=== PATIENT | female | born 1955 | race Caucasian/White ===

== ENCOUNTER → 2021-12-12 09:01 | Outpatient (BNVA) | payer MEDICARE, MEDICAID, SELFPAY | PROVIDERS: PCP Family Medicine; Visit Provider Nurse Practitioner Family | DX: F03.90 Unspecified dementia, unspecified severity, without behavioral disturbance, psychotic disturbance, mood disturbance, and anxiety (principal); R56.9 Unspecified convulsions; R25.1 Tremor, unspecified | CPT/HCPCS: 99212 ==

== ENCOUNTER → 2022-05-23 13:56 | Outpatient (BNVA) | payer MEDICARE, MEDICAID, SELFPAY | PROVIDERS: PCP Family Medicine; Visit Provider Nurse Practitioner Family | DX: R56.9 Unspecified convulsions (principal); F03.90 Unspecified dementia, unspecified severity, without behavioral disturbance, psychotic disturbance, mood disturbance, and anxiety; R25.1 Tremor, unspecified | CPT/HCPCS: 99212 ==

== ENCOUNTER → 2022-11-27 13:22 | Outpatient (BNVA) | payer MEDICARE, MEDICAID, SELFPAY | PROVIDERS: PCP Family Medicine; Visit Provider Nurse Practitioner Family | DX: R26.9 Unspecified abnormalities of gait and mobility (principal); R25.1 Tremor, unspecified; R56.9 Unspecified convulsions; F03.90 Unspecified dementia, unspecified severity, without behavioral disturbance, psychotic disturbance, mood disturbance, and anxiety | CPT/HCPCS: 99212 ==

== ENCOUNTER 2023-05-30 11:01 | Outpatient (AMB) | payer MEDICARE, MEDICAID, SELFPAY ==
--- NOTE | 2023-05-30 11:11 | MHC.OFFVIS ---
Intake Vital Signs 05/30/23 11:13 Height 5 ft Weight 153 lb 6 oz BMI 30.0 BP 144/92 H Blood Pressure Location Rt brachial Position Sitting Pulse 84 Pulse Source Pulse Oximeter Pulse Oximetry (%) 96 Oxygen Delivery Method Room Air Intake Visit Reasons: 6m follow up Intake Note: Patient presents for 6 month follow up. Patient states no concerns today, Im doing very well Allergies cofex Allergy (Mild, Uncoded 05/30/23 11:15) Hives Medication List - Last Reconciled 05/30/23 by DANISHA Bell albuterol sulfate 90 mcg/actuation 1 inh inhalation QID amitriptyline mg PO divalproex ER (Depakote ER) 750 mg (3 x 250 mg) PO DAILY 90 days fluticasone furoate-vilanterol 100-25 mcg/dose (Breo Ellipta) inhalation levetiracetam 1,000 mg PO BID 30 days levetiracetam 750 mg PO BID 30 days levothyroxine 75 mcg PO DAILY memantine 28 mg PO DAILY 30 days HPI HPI Comments History of Present Illness Details 68-yr-old male presents for f/u visit. Pt denies any significant interval medical changes. Pt reports that she has had 4 seizures since the last visit, she has been having a bit more aura again- seeing blue dots. She is not having any urinary incontinence. She is coming out of the seizure sooner. Pt reports she is complaint w/ her Depakote ER 750mg hqs and Keppra 1750mg bid. Last CBC, CMP, depakote level- WNL She has not been having any diplopia. She has completed PT at [facility]- which was very helpful for her balance and walking. Pt states since doing PT and taking the Namenda, her cognition is better. She is due for f/u neuro-psych testing in Jul/Aug. [facility] Surgical History H/O hernia repair Hx of breast reduction, elective Hx of appendectomy Family History Mother Leukemia Father Dementia Epilepsy Social History Alcohol intake: never Patient Tobacco Use Status: Never used Tobacco Review of Systems Const All systems reviewed & are unremarkable except as noted in HPI and below Physical Exam Vital Signs: Last Vital Signs Pulse 84 05/30/23 11:13 BP 144/92 H 05/30/23 11:13 Pulse Ox 96 05/30/23 11:13 Oxygen Delivery Method Room Air 05/30/23 11:13 BMI result Body Mass Index 30.0 Const General: cooperative and no acute distress Orientation/consciousness: patient oriented x3 HEENT Head: Yes normocephalic Resp Effort & Inspection: normal respiratory effort and able to speak in complete sentences Neuro Other: Left dysconjugate gaze General: patient oriented x3 and gait normal Cognition (Neuro): normal cognition Motor exam (neuro): 5/5 motor strength present throughout Psych Appearance: grossly normal Mental Status: mental status grossly normal Speech and movement: Clear speech present Affect: normal affect Attitude: cooperative Thought process: Normal thought process present Assessment & Plan Assessment & Plan (1) Seizure: Code(s): R56.9 - Unspecified convulsions (2) Tremor: Code(s): R25.1 - Tremor, unspecified (3) Dementia: Comment: mild-mod per neuropsych consult Code(s): F03.90 - Unspecified dementia, unspecified severity, without behavioral disturbance, psychotic disturbance, mood disturbance, and anxiety Plan Continue Namenda 28mg qd. Continue Depakote and levetiracetam for seizure management. Check CBC, CMP, Depakote level- lab slip given to pt. Neuro-psych f/u as scheduled Continue to monitor tremor. Orders: Orders Comprehensive Met. Panel Today R56.9 - Unspecified convulsions Valproate Today R56.9 - Unspecified convulsions Complete Blood Count Auto Diff Today R56.9 - Unspecified convulsions Medications: Changed From memantine 28 mg PO DAILY 30 days 30 ea 6RF To memantine 28 mg PO DAILY 90 ea 1RF 90 days Refilled divalproex ER (Depakote ER) 750 mg (3 x 250 mg) PO DAILY 270 tabs 1RF 90 days Coding Level of Care Code Est Pt Level 4 (97550) Diagnoses Seizure R56.9 Tremor R25.1 Dementia F03.90
[2023-05-30 11:13] VITALS: BP 144/92; PULSE 84; O2SAT 96
== END 2023-05-30 12:01 | disposition home or self-care (01) ==
PROVIDERS: Visit Provider Nurse Practitioner Family
DX: R56.9 Unspecified convulsions (principal); R25.1 Tremor, unspecified; F03.90 Unspecified dementia, unspecified severity, without behavioral disturbance, psychotic disturbance, mood disturbance, and anxiety
CPT/HCPCS: 99214

== ENCOUNTER → 2023-05-30 11:01 | Outpatient (BNVA) | payer MEDICARE, MEDICAID, SELFPAY | PROVIDERS: Visit Provider Nurse Practitioner Family | DX: R26.9 Unspecified abnormalities of gait and mobility (principal); R25.1 Tremor, unspecified; R56.9 Unspecified convulsions; F03.90 Unspecified dementia, unspecified severity, without behavioral disturbance, psychotic disturbance, mood disturbance, and anxiety; Z79.899 Other long term (current) drug therapy | CPT/HCPCS: 99212 ==

== ENCOUNTER 2023-11-28 10:47 | Outpatient (AMB) | payer MEDICARE, MEDICAID, SELFPAY ==
--- NOTE | 2023-11-28 11:07 | MHC.OFFVIS ---
Intake Vital Signs 11/28/23 11:08 Height 5 ft Weight 150 lb BMI 29.3 BP 122/70 Blood Pressure Location Rt brachial Position Sitting Respiration 16 Pulse 89 Pulse Source Pulse Oximeter Pulse Oximetry (%) 97 Oxygen Delivery Method Room Air Intake Visit Reasons: 6 mnts f/u for Dementia-CONF Intake Note: Pt presents to the office for a 6 month follow up for dementia. Contact Center Manager Required: No Allergies cofex Allergy (Mild, Uncoded 11/28/23 11:07) Hives Medication List - Last Reconciled 11/28/23 by DANISHA Bell albuterol sulfate 90 mcg/actuation 1 inh inhalation QID amitriptyline mg PO divalproex ER (Depakote ER) 750 mg (3 x 250 mg) PO DAILY 90 days fluticasone furoate-vilanterol 100-25 mcg/dose (Breo Ellipta) inhalation levetiracetam 750 mg PO BID 30 days levetiracetam 1,000 mg PO BID 30 days levothyroxine 75 mcg PO DAILY memantine 28 mg PO DAILY 90 days HPI HPI Comments History of Present Illness Details 68-yr-old male presents for f/u visit. Pt denies any significant interval medical history changes. However, her has had significant health changes- dx'd w/ st IV colon cancer in Jun 2023 and has undergone surgery, and is still undergoing chemo. While pt's was admitted to the hospital x's 1 month, she did stay w/ her [id number]. During this time, they did temporarily move into his sister's in-law apartment, and they just have been able to move back home. Pt notes that during this time, she feels she was doing better overall. Since the last visit, she has had 2 typical seizure episodes- seeing blue spots, SOB then LOC- staring into space, but w/o urinary incontinence. No postictal symptoms. Her gait has been good- not needing to use her walker or cane. Her memory is better. No diplopia. No vision issues w/ her glasses. [facility] Surgical History H/O hernia repair Hx of breast reduction, elective Hx of appendectomy Family History Mother Leukemia Father Dementia Epilepsy Social History Alcohol intake: never Patient Tobacco Use Status: Never used Tobacco Review of Systems Const All systems reviewed & are unremarkable except as noted in HPI and below Physical Exam Vital Signs: Last Vital Signs Pulse 89 11/28/23 11:08 Resp 16 11/28/23 11:08 BP 122/70 11/28/23 11:08 Pulse Ox 97 11/28/23 11:08 Oxygen Delivery Method Room Air 11/28/23 11:08 BMI result Body Mass Index 29.3 Const General: cooperative and no acute distress Resp Effort & Inspection: normal respiratory effort and able to speak in complete sentences Neuro Other: A&O x's 3 Left dysconjugate gaze Improved gait w/o device. Assessment & Plan Assessment & Plan (1) Seizure: Code(s): R56.9 - Unspecified convulsions (2) Dementia: Comment: mild-mod per neuropsych consult Code(s): F03.90 - Unspecified dementia, unspecified severity, without behavioral disturbance, psychotic disturbance, mood disturbance, and anxiety (3) Tremor: Code(s): R25.1 - Tremor, unspecified Plan Continue Namenda 28mg qd. Continue Depakote 750mg qd. Contineu levetiracetam 1750mg bid. Reviewed CBC, CMP, Depakote level- NL. Repeat labs before f/u visit. Neuro-psych f/u as scheduled Continue to monitor tremor. Medications: Changed From levetiracetam 1,000 mg PO BID 30 days 60 tabs 6RF To levetiracetam 1,000 mg PO BID 180 tabs 1RF 90 days From levetiracetam 750 mg PO BID 30 days 60 tabs 6RF To levetiracetam 750 mg PO BID 180 tabs 1RF 90 days Refilled memantine 28 mg PO DAILY 90 ea 1RF 90 days divalproex ER (Depakote ER) 750 mg (3 x 250 mg) PO DAILY 270 tabs 1RF 90 days Coding Level of Care Code Est Pt Level 4 (25043) Diagnoses Seizure R56.9 Dementia F03.90 Tremor R25.1
[2023-11-28 11:08] VITALS: BP 122/70; PULSE 89; RESP 16; O2SAT 97; BMI 29.3
== END 2023-11-28 11:57 | disposition home or self-care (01) ==
PROVIDERS: Visit Provider Nurse Practitioner Family
DX: R56.9 Unspecified convulsions (principal); F03.90 Unspecified dementia, unspecified severity, without behavioral disturbance, psychotic disturbance, mood disturbance, and anxiety; R25.1 Tremor, unspecified
CPT/HCPCS: 99214

== ENCOUNTER → 2023-11-28 10:47 | Outpatient (BNVA) | payer MEDICARE, MEDICAID, SELFPAY | PROVIDERS: Visit Provider Nurse Practitioner Family | DX: R56.9 Unspecified convulsions (principal); F03.90 Unspecified dementia, unspecified severity, without behavioral disturbance, psychotic disturbance, mood disturbance, and anxiety; R25.1 Tremor, unspecified | CPT/HCPCS: 99212 ==

== ENCOUNTER 2024-06-01 10:21 | Outpatient (AMB) | payer MEDICARE, OTHER, SELFPAY ==
--- NOTE | 2024-06-01 10:27 | MHC.OFFVIS ---
Vital Signs 06/01/24 10:28 Height 5 ft Weight 154 lb BMI 30.1 BP 118/74 Blood Pressure Location Rt brachial Position Sitting Intake Visit Reasons: 6 mnts f/u Dementia-SEE COMMENTS Intake Note: Patient presets for 6 months dementia Allergies cofex Allergy (Mild, Uncoded 06/01/24 10:30) Hives Medication List - Last Reconciled 06/01/24 by DANISHA Bell albuterol sulfate 90 mcg/actuation 1 inh inhalation QID amitriptyline mg PO divalproex ER (Depakote ER) 750 mg (3 x 250 mg) PO DAILY 90 days fluticasone furoate-vilanterol 100-25 mcg/dose (Breo Ellipta) inhalation levetiracetam 1,000 mg PO BID 90 days levetiracetam 750 mg PO BID 90 days levothyroxine 75 mcg PO DAILY memantine 28 mg PO DAILY 90 days HPI Comments Details: 69-yr-old female presents for f/u visit. Pt denies any significant interval medical changes. Pt continues to have stress r/t her continues to have medical issues- colon CA, recent stroke/a-fib dx. And her mother has also been in and out of the hospital and is now in LTC on hospice. Pt has not had a seizure in > 1 yr. Pt reports she is complaint w/ her Depakote ER 750mg qhs and Keppra 1750mg bid. Pt reports she is doing well w/ her cognition. Does still taking notes, but is able to help her and mother out well. Compliant w/ Memantine ER 28mg. No diplopia in a long time. Balance is better. Not needing to use her walker. She has started to drive again. Did have a driving eval by a driving school, and they did not see any driving concerns. [facility] Surgical History H/O hernia repair Hx of breast reduction, elective Hx of appendectomy Family History Mother Leukemia Father Dementia Epilepsy Social History Alcohol intake: never Patient Tobacco Use Status: Never used Tobacco Physical Exam Vital Signs: Last Vital Signs BP 118/74 06/01/24 10:28 BMI result Body Mass Index 30.1 Const General: cooperative and no acute distress Orientation/consciousness: patient oriented x3 Resp Effort & Inspection: normal respiratory effort and able to speak in complete sentences Neuro Other: No tremor. Mild assymetric palpebral fissure R > L, mild dysconjugate gaze w/o diplopia. General: patient oriented x3 Cranial nerves: Yes Nystagmus not present, Yes Ability to bilaterally rotate head present and Yes Ability to bilaterally elevate shoulders present Cognition (Neuro): normal cognition Gait exam (Neuro): Normal gait present Psych Appearance: grossly normal Mental Status: mental status grossly normal Speech and movement: Normal speech and movement present Affect: normal affect Attitude: cooperative Assessment & Plan Assessment & Plan (1) Seizure: Code(s): R56.9 - Unspecified convulsions Category: Medical (2) Dementia: Comment: mild-mod per neuropsych consult Code(s): F03.90 - Unspecified dementia, unspecified severity, without behavioral disturbance, psychotic disturbance, mood disturbance, and anxiety Category: Medical Plan Pt is overall improving- no recent seizure activity and cogniion has stabilized if not improved some. Continue Namenda 28mg qd. Continue Depakote 750mg qd. Continue levetiracetam 1750mg bid. Recheck CBC, CMP, Depakote level. Neuro-psych f/u when able. Continue to monitor tremor. Medications: Refilled divalproex ER (Depakote ER) 750 mg (3 x 250 mg) PO DAILY 90 days 270 tabs 1RF memantine 28 mg PO DAILY 90 days 90 ea 1RF levetiracetam 1,000 mg PO BID 90 days 180 tabs 1RF levetiracetam 750 mg PO BID 90 days 180 tabs 1RF Coding Level of Care Code Est Pt Level 4 (50743) Diagnoses Seizure R56.9 Dementia F03.90
[2024-06-01 10:28] VITALS: BP 118/74; BMI 30.1
== END 2024-06-01 11:18 | disposition home or self-care (01) ==
PROVIDERS: Visit Provider Nurse Practitioner Family
DX: R56.9 Unspecified convulsions (principal); F03.90 Unspecified dementia, unspecified severity, without behavioral disturbance, psychotic disturbance, mood disturbance, and anxiety
CPT/HCPCS: 99214

== ENCOUNTER 2024-06-01 11:18 | Outpatient (REF) | payer MEDICARE, OTHER, SELFPAY ==
[2024-06-01 17:48] LABS: MANUAL DIFF FLAG NO
[2024-06-01 17:58] LABS: Basophils Absolute Auto 0.1 X10*3/uL (0.0-0.2); Basophils Percent Auto 0.8 % (0-2); Eosinophils Absolute Auto 0.1 X10*3/uL (0.0-0.4); Eosinophils Percent Auto 1.1 % (0-4); Hematocrit 39.7 % (37.0-47.0); Hemoglobin 13.2 g/dl (12.0-16.0); Imm Gran Abs Auto 0.04 X10*3/uL (0.00-0.03); Imm Gran Pct Auto 0.6 % (0.0-0.4); Lymphocytes Absolute Auto 1.8 X10*3/uL (1.2-4.9); Lymphocytes Percent Auto 24.4 % (20-40); Mean Corpuscular HGB Conc 33.2 g/dl (31.0-35.0); Mean Corpuscular Hemoglobin 31.3 pg (27.0-33.0); Mean Corpuscular Volume 94.1 fL (80.0-98.0); Mean Platelet Volume 10.7 fL (9.4-12.3); Monocytes Absolute Auto 0.6 X10*3/uL (0.1-1.2); Monocytes Percent Auto 7.6 % (2-11); Neutrophils Absolute Auto 4.7 x10*3/uL (2.0-8.3); Neutrophils Percent Auto 65.5 % (45-73); Platelet Count 274 X10*3/uL (160-400); Red Blood Count 4.22 X10*6/uL (4.20-5.50); Red Cell Distribution Width 12.6 % (11.0-16.0); White Blood Count 7.2 X10*3/uL (4.8-10.8)
[2024-06-01 18:35] LABS: Alanine Aminotransferase 12 U/L (0-31); Albumin Level 4.4 g/dL (3.5-5.0); Alkaline Phosphatase 59 U/L (39-117); Anion Gap 12 (12-20); Aspartate Amino Transferase 18 U/L (5-31); Bilirubin Total 0.4 mg/dL (0.0-1.0); Blood Urea Nitrogen 8 mg/dL (9-16); Carbon Dioxide 27 mmol/L (22-29); Chloride 107 mmol/L (96-108); Estimated Glomerular Filt Rate > 60; Glucose Random 129 mg/dL (60-115); Potassium 4.5 mmol/L (3.3-5.1); Sodium 141 mmol/L (135-145); Total Protein 7.5 g/dL (6.5-8.0)
[2024-06-01 18:47] LABS: Valproate 47.5 mcg/mL (50.0-100.0)
== END 2024-06-01 11:19 | disposition home or self-care (01) ==
LOC: HO.HKASLDS 11:18
PROVIDERS: Visit Provider Nurse Practitioner Family
DX: R56.9 Unspecified convulsions (principal); F03.90 Unspecified dementia, unspecified severity, without behavioral disturbance, psychotic disturbance, mood disturbance, and anxiety; Z79.899 Other long term (current) drug therapy
CPT/HCPCS: 36415; 80053; 80164; 85025; 99212

== ENCOUNTER 2024-12-10 08:27 | Outpatient (AMB) | payer MEDICARE, OTHER, SELFPAY ==
--- NOTE | 2024-12-10 08:30 | A.OFFVIS_ITS ---
Vital Signs 12/10/24 08:31 Height 5 ft Weight 159 lb BMI 31.0 BP 140/80 H Blood Pressure Location Rt brachial Position Sitting Pulse 95 Pulse Source Pulse Oximeter Pulse Oximetry (%) 95 Oxygen Delivery Method Room Air Intake Visit Reasons: Follow Up Intake Note: Patient presents follow up Seizure/Dementia Product Development Coordinator Required: No Accompanied by: Spouse Allergies cofex Allergy (Mild, Uncoded 12/10/24 08:35) Hives Medication List - Last Reconciled 12/10/24 by DANISHA Bell albuterol sulfate 90 mcg/actuation 1 inh inhalation QID amitriptyline mg PO divalproex ER (Depakote ER) 750 mg (3 x 250 mg) PO DAILY 90 days fluticasone furoate-vilanterol 100-25 mcg/dose (Breo Ellipta) inhalation levetiracetam 1,000 mg PO BID 90 days levetiracetam 750 mg PO BID 90 days levothyroxine 75 mcg PO DAILY memantine 28 mg PO DAILY 90 days sertraline 50 mg PO DAILY HPI Comments Details: 69-yr-old female presents for f/u visit of seizures and cognitive difficulties. Pt reports she had a fall in Oct while on vacation in [place]- fell trying to get out of a rented large truck- which is much higher than their typical SUV/car. Pt also reports she lost her 94-yr-old mother last week. She notes that she was started on ? Sertraline 100mg for anxiety and ruminating thoughts preventing her from sleeping- which has been helpful. She states her memory and cognition is still strong. She is driving locally w/o difficulty. Denies any interval seizure like activity for > 1.5 years now. Balance is still improved. notes that she may shuffle in her slip-on slippers- especially when she tries to put them on when standing. She has a tremor- usually when holding something or going to take hold of something. She plans to start exercising again once everything settles from her mother passing. Denies interval diplopia. Sep- CBC, CMP, Valproate level- WNL 06/01/2024, HPI: 69-yr-old female presents for f/u visit. Pt denies any significant interval medical changes. Pt continues to have stress r/t her continues to have medical issues- colon CA, recent stroke/a-fib dx. And her mother has also been in and out of the hospital and is now in LTC on hospice. Pt has not had a seizure in > 1 yr. Pt reports she is complaint w/ her Depakote ER 750mg qhs and Keppra 1750mg bid. Pt reports she is doing well w/ her cognition. Does still taking notes, but is able to help her and mother out well. Compliant w/ Memantine ER 28mg. No diplopia in a long time. Balance is better. Not needing to use her walker. She has started to drive again. Did have a driving eval by a driving school, and they did not see any driving concerns. [facility] Surgical History H/O hernia repair Hx of breast reduction, elective Hx of appendectomy Family History Mother Leukemia Father Dementia Epilepsy Social History Alcohol intake: never Patient Tobacco Use Status: Never used Tobacco Physical Exam Vital Signs: Last Vital Signs Pulse 95 12/10/24 08:31 BP 140/80 H 12/10/24 08:31 Pulse Ox 95 12/10/24 08:31 Oxygen Delivery Method Room Air 12/10/24 08:31 BMI result Body Mass Index 31.0 Const General: cooperative and no acute distress Orientation/consciousness: patient oriented x3 Resp Effort & Inspection: normal respiratory effort and able to speak in complete sentences Neuro Other: Mild assymetric palpebral fissure R > L, mild dysconjugate gaze w/o diplopia. LUE postural and kinetic tremor. Finger-nose intact w/ mild kinetic tremor. FFM- intact Foot taps- ok Stands easily, steady gait. General: patient oriented x3 Cranial nerves: Yes Nystagmus not present Cognition (Neuro): normal cognition Psych Appearance: grossly normal Mental Status: mental status grossly normal Affect: normal affect Attitude: cooperative Assessment & Plan Assessment & Plan (1) Seizure: Code(s): R56.9 - Unspecified convulsions Category: Medical (2) Dementia: Comment: mild-mod per neuropsych consult Code(s): F03.90 - Unspecified dementia, unspecified severity, without behavioral disturbance, psychotic disturbance, mood disturbance, and anxiety Category: Medical Plan Pt is overall improving- no recent seizure activity and cogniion has stabilized if not improved some. Continue Namenda 28mg qd. Continue Depakote 750mg qd. Continue levetiracetam 1750mg bid. Recheck CBC, CMP, Depakote level. Neuro-psych f/u when able. Continue to monitor tremor. Will follow-up upon review of above and patient to follow-up in clinic in 6 months or sooner prn. Orders: Orders Complete Blood Count Auto Diff Today R25.1 - Tremor, unspecified, R56.9 - Unspecified convulsions Comprehensive Met. Panel Today R25.1 - Tremor, unspecified, R56.9 - Unspecified convulsions Valproate Today R25.1 - Tremor, unspecified, R56.9 - Unspecified convulsions Medications: Refilled divalproex ER (Depakote ER) 750 mg (3 x 250 mg) PO DAILY 90 days 270 tabs 3RF levetiracetam 1,000 mg PO BID 90 days 180 tabs 3RF levetiracetam 750 mg PO BID 90 days 180 tabs 3RF Coding Level of Care Code Est Pt Level 4 (14030) Diagnoses Seizure R56.9 Dementia F03.90
[2024-12-10 08:31] VITALS: BP 140/80; PULSE 95; O2SAT 95; BMI 31.0
--- OUTSIDE RECORDS SUMMARY | 2024-12-10 08:46 | XMS_ITS | Clinical Summary ---
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 Name Role Phone Unavailable Primary Care Provider Unavailabl e Social History Tobacco Use Types Packs/Day Years Used Date Smoking Tobacco: Never Assessed Comments Unknown Sex and Gender Information Value Date Recorded Sex Assigned at Not on file Legal Sex Female 6:51 PM EST Gender Identity Not on file Sexual Orientation Not on file Plan of Treatment Health Maintenance Due Date Last Done Comments Breast Cancer Screening 1955 DTaP,Tdap,and Td Vaccines (1 - Tdap) 1976 Hepatitis A Vaccines (1 of 2 - Risk 2-dose series) 1976 Pneumococcal Vaccine: 50+ Ye ars (1 of 2 - PCV) 1976 Zoster Vaccines (1 of 2) 2007 Hepatitis B Vaccines (1 of 3 - Risk 3-dose series) 2017 RSV Immunization Patients 60 + Years Old (1 - Risk 60-74 years 1-dose series) 2017 Cholesterol Screening (Lipid Panel) 08/24/2022 Colorectal Cancer Screening: Colonoscopy 08/24/2022 Depression Screening 08/24/2022 Falls Risk Assessment 08/24/2022 Hepatitis C Screening 08/24/2022 Osteoporosis Screening (Bone Density Screening) 08/24/2022 Social Influencers of Health Screening 08/24/2022 COVID-19 Vaccine ( - 2023-2 5 season) 2024 Influenza Vaccine (#1) 2024 HIB Vaccines Aged Out No longer eligi ble based on patient's age to complete this topic HPV Vaccines Aged Out No longer eligi ble based on patient's age to complete this topic IPV Vaccines Aged Out No longer eligi ble based on patient's age to complete this topic MMR Vaccines Aged Out No longer eligi ble based on patient's age to complete this topic Meningococcal ACWY Vaccine Aged Out N o longer eligible based on patient's age to complete this topic Meningococcal B Vacine Aged Out No lo nger eligible based on patient's age to complete this topic RSV Immunization Patients Un izzy 20 months Aged Out No longer eligible b ased on patient's age to complete this topic Varicella Vaccines Aged Out No longer eligible based on patient's age to complete this topic
== END 2024-12-10 09:26 | disposition home or self-care (01) ==
LOC: HO.HSMS 08:28
PROVIDERS: Visit Provider Nurse Practitioner Family
DX: R56.9 Unspecified convulsions (principal); F03.90 Unspecified dementia, unspecified severity, without behavioral disturbance, psychotic disturbance, mood disturbance, and anxiety
CPT/HCPCS: 99214

== ENCOUNTER → 2024-12-10 08:27 | Outpatient (BNVA) | payer MEDICARE, OTHER, SELFPAY | PROVIDERS: Visit Provider Nurse Practitioner Family | DX: R56.9 Unspecified convulsions (principal); F03.90 Unspecified dementia, unspecified severity, without behavioral disturbance, psychotic disturbance, mood disturbance, and anxiety | CPT/HCPCS: 99212 ==

== ENCOUNTER 2025-03-15 13:21 | Outpatient (AMB) | payer MEDICARE, OTHER, SELFPAY ==
[2025-03-15 13:30] VITALS: BP 134/80; PULSE 75; O2SAT 97; BMI 33.0
--- NOTE | 2025-03-15 13:30 | A.OFFVIS_ITS ---
Vital Signs 03/15/25 13:30 Height 5 ft Weight 169 lb BMI 33.0 BP 134/80 Blood Pressure Location Rt brachial Position Sitting Pulse 75 Pulse Source Pulse Oximeter Pulse Oximetry (%) 97 Oxygen Delivery Method Room Air Intake Visit Reasons: URGENT Discharge f/u Intake Note: Patient presents follow up for seizure/dementia. ER follow up. Uncontrollable shaking. Unsteady on the feet and memory issues. Spouse states he believes issues started back in October with the falling and memory issues. Drapery Cutter Required: No Accompanied by: Spouse Allergies cofex Allergy (Mild, Uncoded 03/15/25 13:38) Hives Medication List - Last Reconciled 03/15/25 by DANISHA Bell albuterol sulfate 90 mcg/actuation 1 inh inhalation QID amitriptyline mg PO amitriptyline 100 mg PO BEDTIME aspirin 81 mg PO BEDTIME 30 days divalproex ER (Depakote ER) 750 mg (3 x 250 mg) PO DAILY 90 days fluticasone furoate-vilanterol 100-25 mcg/dose (Breo Ellipta) inhalation levetiracetam 1,000 mg PO BID 90 days levetiracetam 750 mg PO BID 90 days levothyroxine 75 mcg PO DAILY memantine 28 mg PO DAILY 90 days sertraline 50 mg PO DAILY HPI Comments Details: The patient is a 69-year-old female presenting for an urgent ER follow-up visit for a syncopal event, in setting of known cognitive difficulties, and seizure. Patient is accompanied by her . on 03/08/2025, patient had a witnessed syncopal event, while standing. Patient states that before and after the event she felt fine, other than acknowledging increased stress and anxiety as she had just received news that her was seriously ill and was possibly not going to survive his adverse reaction to his chemotherapy t. In the ER, workup including EKG and troponin were unremarkable, MRI brain without contrast was unremarkable, CT angio head / neck did not show any large vessel occlusion, XR chest was negative for active pulmonary process, CT head stroke without contrast was negative for acute hemorrhage or intracranial mass or changes. lab results were notable for anemia with H&H 10.6 and 33.4, positive urine cannabinoid screen, total cholesterol elevated at 283, triglycerides elevated at 158, LDL elevated at 198, HDL normal at 53. otherwise, labs including CMP, TSH, ammonia, PTT, levetiracetam, were within normal limits. Discharge diagnosis was syncope secondary to stressful emotional response. upon discharge, patient was advised to start high- intensity statin, atorvastatin 80 mg daily. patient was also discharged home with home PT, however services have not started yet as when the be called them, patient's was still hospitalized. Since, patient's has returned home And is doing better. Patient is not currently driving. This episode was not consistent with her typical seizure activity. She is compliant with her levetiracetam and Depakote. The patient has experienced multiple falls since October, including incidents in [place] and at home, where she fell in the bedroom and hit her head on a coffee table. She does not recall the incidents surrounding the falls, and her memory has been progressively declining. The patient reports significant tremors and unsteadiness, particularly when navigating steps, requiring assistance from family members. She has started using a cane again for support. patient's reports that her cognitive and gait symptoms are much more similar to when patient originally presented with seizure /cognitive /gait difficulties- the patient herself is not so sure. However patient does acknowledge that she is not comfortable driving at this time. The patient has been experiencing emotional distress due to personal circumstances, including concerns about her partner's health and financial stability. She is on sertraline for mood stabilization, which she has been taking at bedtime. Today patient's notes that patient had stopped a mitriptyline 100 mg ( which she had taken for decades) several months ago, and was tried on low-dose quetiapine which was ineffective for sleep. Thus, amitriptyline was resumed at 100 mg daily at bedtime, and he now believes that the reintroduction of the amitriptyline does correlate with the worsening of her cognitive and gait and tremor symptoms. [facility] Surgical History H/O hernia repair Hx of breast reduction, elective Hx of appendectomy Family History Mother Leukemia Father Dementia Epilepsy Social History Alcohol intake: never Patient Tobacco Use Status: Never used Tobacco Physical Exam Vital Signs: Last Vital Signs Pulse 75 03/15/25 13:30 BP 134/80 03/15/25 13:30 Pulse Ox 97 03/15/25 13:30 Oxygen Delivery Method Room Air 03/15/25 13:30 BMI result Body Mass Index 33.0 Const General: cooperative and no acute distress Resp Effort & Inspection: normal respiratory effort and able to speak in complete sentences Neuro Other: Alert and oriented with mild short-term memory lapses Mild assymetric palpebral fissure R > L, mild dysconjugate gaze w/o diplopia. Mild LUE rest and postural tremor. Stands easily, steady with contact guard Cranial nerves: Yes Nystagmus not present Psych Appearance: grossly normal Mental Status: mental status grossly normal Affect: normal affect Attitude: cooperative Assessment & Plan Assessment & Plan (1) Dementia: Comment: mild-mod per neuropsych consult Code(s): F03.90 - Unspecified dementia, unspecified severity, without behavioral disturbance, psychotic disturbance, mood disturbance, and anxiety Category: Medical Qualifiers: Dementia type: unspecified type Dementia severity: unspecified severity Dementia behavioral or psychological symptom: unspecified whether behavioral, psychotic, or mood disturbance or anxiety Qualified Code(s): F03.90 - Unspecified dementia, unspecified severity, without behavioral disturbance, psychotic disturbance, mood disturbance, and anxiety (2) Seizure: Code(s): R56.9 - Unspecified convulsions Category: Medical (3) Tremor: Code(s): R25.1 - Tremor, unspecified Category: Medical (4) Frequent falls: Code(s): R29.6 - Repeated falls Category: Medical Plan Discussion Notes During the visit, we discussed the patient's recent syncopal event and cognitive difficulties, emphasizing the need for a repeat brain MRI to rule out microbleeds. We reviewed the patient's medication regimen, including the potential impact of sertraline and amitriptyline on her symptoms, and planned adjustments to improve her cognitive and physical function. The importance of continuing levetiracetam and Depakote for seizure management was highlighted, along with the initiation of physical therapy to enhance mobility and safety. Patient was informed and verbally consented to the use of an ambient scribe for clinic note documentation during this visit. Plan and patient instructions - Plan to repeat brain MRI to assess for any microbleeds or other abnormalities. - Adjust sertraline administration to morning to potentially improve cognitive function and reduce morning shakiness. - Taper amitriptyline dosage to assess impact on cognitive and physical symptoms- * decrease amitriptyline from 100 mg to 75 mg daily at bedtime x2 weeks then 50 mg daily at bedtime. - Continue levetiracetam (Keppra) 1750 mg twice a day for seizure management. - Continue Depakote 750 mg daily. - Continue Namenda 28mg qd. - Walk with a cane consistently - Initiate physical therapy through [facility] for improved mobility and safety at home- as ordered by [facility] * Patient may benefit from having a director of graduate medical education consult * states that patient and himself have healthcare proxies, Torres, advanced directives in place - Concur with starting atorvastatin 80 mg daily at bedtime. - Start low-dose chewable aspirin 81 mg at bedtime for cardiovascular protection. Will follow-up upon review of above and patient to follow-up in clinic in 3-6 months or sooner prn. Orders: Orders MR head/brain wo/w con Today F03.90 - Unspecified dementia, unspecified severity, without behavioral disturbance, psychotic disturbance, mood disturbance, and anxiety, R25.1 - Tremor, unspecified, R29.6 - Repeated falls, R56.9 - Unspecified convulsions Medications: New aspirin OTC 81 mg PO BEDTIME 30 tabs 0RF 30 days Coding Level of Care Code Est Pt Level 4 (12209) Diagnoses Dementia, unspecified dementia severity, unspecified dementia type, unspecified whether behavioral, psychotic, or mood disturbance or anxiety F03.90 Dementia type: unspecified type Dementia severity: unspecified severity Dementia behavioral or psychological symptom: unspecified whether behavioral, psychotic, or mood disturbance or anxiety Seizure R56.9 Tremor R25.1 Frequent falls R29.6
--- OUTSIDE RECORDS SUMMARY | 2025-03-15 15:22 | XMS_ITS | Clinical Summary ---
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 Max Daily Amount: 0.5 mg 02/01/2025 Active amitriptyline (ELAVIL) 100 mg tablet Take 1 tablet (100 mg total) by mouth at bedtime. Active divalproex (DEPAKOTE ER) 250 mg 24 hr tablet Take 3 tablets (750 mg total) by mouth 1 (one) time each day. 02/04/2025 Active levETIRAcetam (KEPPRA) 1,000 mg tablet Take 1 tablet (1,000 mg total) by mouth 2 (two) times a day. Active levothyroxine (SYNTHROID, LEVOTHROID) 75 mcg tablet Take 1 tablet (75 mcg total) by mouth 1 (one) time each day. 10/25/2024 Active memantine (NAMENDA XR) 28 mg extended release capsule Take 1 capsule (28 mg total) by mouth 1 (one) time each day. for 90 days 10/26/2024 Active olmesartan (BENICAR) 5 mg tablet Take 1 tablet (5 mg total) by mouth 1 (one) time each day. 09/23/2024 Active sertraline (ZOLOFT) 100 mg tablet Take 1 tablet (100 mg total) by mouth 1 (one) time each day. 02/01/2025 Active atorvastatin (LIPITOR) 80 mg tablet Take 1 tablet (80 mg total) by mouth at bedtime. 30 each 03/09/2025 Active Active Problems Problem Noted Date Diagnosed Date TIA (transient ischemic attack) 03/08/2025 Encounters Date Type Department Care Team Description 03/08/2025 11:33 AM EDT - 03/09/2025 3:17 PM EDT Hospital Encounter [facility] Intermediate Care Unit [address] [place] [address] Hakan Perdomo DO Bukalo, Nermina, MD Santoyo-Pacheco, Omar D, MD Altered mental status, unspecified altered mental status type (Primary Dx); Gait instability; TIA (transient ischemic attack) Discharge Disposition: [place] [facility] [place]22/[place]25 12:30 PM EDT - 01/22/2025 4:23 PM EDT Emergency [facility] Emergency [address] [place] [address] Elen Kong MD Epiploic appendagitis (Primary Dx) Discharge Disposition: Home or Self Care from Last 3 Months Surgical History Surgery Date Site/Laterality Comments APPENDECTOMY BREAST LUMPECTOMY HERNIA REPAIR BREAST REDUCTION Medical History Medical History Date Comments Asthma Erwbo-0-kouidlqjqakovmdy deficiency Phenotype M2 Seizure disorder ([facility] V24, [facility] V28) Breast cancer ([facility] V24, [facility] V28) Migraine Hyperlipidemia Hypertension Family History Medical History Relation Name Comments Coronary artery disease Father Heart attack Father Dementia Mother Relation Name Status Comments Father Mother Social History Tobacco Use Types Packs/Day Years Used Date Smoking Tobacco: Never Smokeless Tobacco: Never Tobacco Cessation:Counseling Given: Not Answered Alcohol Use Standard Drinks/Week Comments Not Currently 0 (1 standard drink = 0.6 oz pur e alcohol) Interpersonal Safety Answer Date Record ed Physical Abuse 03/08/2025 Verbal Abuse 03/08/2025 Comments Unknown Sex and Gender Information Value Date Recorded Sex Assigned at Not on file Legal Sex Female 6:51 PM EST Gender Identity Not on file Sexual Orientation Not on file Obstetrics History Last Filed Vital Signs Vital Sign Reading Time Taken Comments Blood Pressure 133/77 03/09/2025 12:00 PM EDT Pulse 79 03/09/2025 12:00 PM EDT Temperature 36.3 C (97.4 F) 03/09/2025 12:00 PM EDT Respiratory Rate 20 03/09/2025 12:00 PM EDT Oxygen Saturation 95% 03/09/2025 12:00 PM EDT Inhaled Oxygen Concentration - - Weight 72.6 kg (160 lb) 01/22/2025 11:28 AM EDT Height 157.5 cm (5' 2 ) 03/08/2025 11:24 AM EDT Body Mass Index 29.26 01/22/2025 11:28 AM EDT Plan of Treatment Health Maintenance Due Date Last Done Comments Breast Cancer Screening 1955 Hepatitis A Vaccines (1 of 2 - Risk 2-dose series) 1976 Zoster Vaccines (1 of 2) 1976 Hepatitis B Vaccines (1 of 3 - Risk 3-dose series) 2017 Pneumococcal Vaccine: 50+ Years (3 of 3 - PCV) 08/18/2020 08/18/2019, 08/21/2013 Colorectal Cancer Screening: Colonoscopy 08/24/2022 Depression Screening 08/24/2022 Hepatitis C Screening 08/24/2022 Medicare Annual Wellness Visit 08/24/2022 Osteoporosis Screening (Bone Density Screening) 08/24/2022 Social Influencers of Health Screening 08/24/2022 COVID-19 Vaccine (9 - Pfizer risk season) 2025 07/09/2024, 08/04/2023, 01/25/2023, Additional history exists Falls Risk Assessment 03/09/2026 03/09/2025 Hypertension/CHF/CAD Annual BMP Blood Test 03/09/2026 03/09/2025, 03/08/2025, 01/22/2025, Additional history exists DTaP,Tdap,and Td Vaccines (2 - Td or Tdap) 10/15/2027 10/15/2017 Cholesterol Screening (Lipid Panel) 03/09/2030 03/09/2025 RSV Immunization Adult Patients Completed 10/02/2023 Influenza Vaccine Completed 07/31/2024, , 06/22/2022, Additional history exists HIB Vaccines Aged Out No longer eligi [...] age to complete this topic Meningococcal B Vaccine Aged Out No l onger eligible based on patient's age to complete this topic RSV Immunization Patients Under 20 months Aged Out No longer eligible based on patient's age to complete this topic Varicella Vaccines Aged Out No longer eligible based on patient's age to complete this topic Procedures Procedure Name Priority Date/Time Associated Diagnosis Comments ROUTINE EEG Routine 03/09/2025 11:20 AM EDT RESPIRATORY VIRUS PANEL MOLECULAR STUDY Routine 03/09/2025 8:55 AM EDT DRUG ABUSE SCREEN 8A PANEL, URINE Routine 03/09/2025 6:28 AM EDT HEPATIC FUNCTION PANEL Add-On 6:16 AM EDT LIPID PANEL WITH REFLEX TO DIRECT LDL Routine 03/09/2025 6:16 AM EDT COMPLETE BLOOD COUNT Routine 03/09/2025 6:16 AM EDT BASIC METABOLIC PANEL Routine 03/09/2025 6:16 AM EDT MR BRAIN WO CONTRAST Routine 03/08/2025 8:51 PM EDT AMMONIA Routine 03/08/2025 6:42 PM EDT VALPROIC ACID LEVEL, TOTAL Timed 03/08/2025 6:42 PM EDT HERNANDEZ URINE CULTURE TUBE STAT 03/08/2025 3:24 PM EDT URINALYSIS WITH REFLEX MICROSCOPIC AND CULTURE STAT 03/08/2025 3:24 PM EDT URINALYSIS WITH REFLEX MICROSCOPIC AND CULTURE STAT 03/08/2025 3:24 PM EDT CULTURE URINE STAT 03/08/2025 3:24 PM EDT ECG 12-LEAD STAT 03/08/2025 12:13 PM EDT POC GLUCOSE STAT 03/08/2025 12:[address] ANGIO HEAD/NECK STROKE WO AND/OR W CONTRAST STAT 03/08/2025 12:07 PM EDT POCT GLUCOSE BLOOD Routine 03/08/2025 12 :07 PM EDT XR CHEST 1 VIEW STAT 03/08/2025 12:05 PM EDT LEVETIRACETAM LEVEL STAT 03/08/2025 1 1:53 AM EDT VALPROIC ACID LEVEL, TOTAL AND FREE STAT 03/08/2025 11:[address] HEAD STROKE WO CONTRAST STAT 03/08/2025 11:48 AM EDT THYROID STIMULATING HORMONE WITH REFLEX TO FREE T4 AND FREE T3 Add-On 03/08/2025 11:31 AM EDT ETHANOL Add-On 03/08/2025 11:31 AM EDT PHENYTOIN LEVEL, TOTAL STAT Add-on 11:31 AM EDT CBC WITH AUTO DIFFERENTIAL STAT 03/08/2025 11:31 AM EDT ACTIVATED PARTIAL THROMBOPLASTIN TIME STAT 03/08/2025 11:31 AM EDT PROTHROMBIN TIME WITH INR STAT 03/08/2025 11:31 AM EDT BASIC METABOLIC PANEL STAT 03/08/2025 11:31 AM EDT CBC AND DIFFERENTIAL STAT 03/08/2025 11:[address] ABDOMEN PELVIS W CONTRAST STAT 01/22/2025 2:33 PM EDT LACTATE, WITH REFLEX STAT 01/22/2025 1:12 PM EDT CBC WITH AUTO DIFFERENTIAL STAT 01/22/2025 11:45 AM EDT LIPASE STAT 01/22/2025 11:45 AM EDT COMPREHENSIVE METABOLIC PANEL STAT 01/22/2025 11:45 AM EDT CBC AND DIFFERENTIAL STAT 01/22/2025 11:45 AM EDT from Last 3 Months Results * Routine EEG (03/09/2025 11:20 AM EDT) Narrative Sriram Akins MD - 03/09/2025 3:17 PM EDT Sriram Akins MD 03/10/2025 9:25 AM ROUTINE ELECTROENCEPHALOGRAPHY (EEG) REPORT Study Date: 03/09/25 Clinical Information History: Nancy Corrigan is a 69 y.o. woman with seizure disorder, asthma, alpha 1 antitrypsin deficiency, hypertension, hyperlipidemia, migraine headaches, history of breast cancer who was brought to the ED for syncope. Medications: No current facility-administered medications for this encounter. Current Outpatient Medications: ALPRAZolam (XANAX) 0.25 mg tablet, Take 1 tablet (0.25 mg total) by mouth 2 (two) times a day if needed for anxiety. Max Daily Amount: 0.5 mg, Disp: , Rfl: atorvastatin (LIPITOR) 80 mg tablet, Take 1 tablet (80 mg total) by mouth at bedtime., Disp: 30 each, Rfl: 0 divalproex (DEPAKOTE ER) 250 mg 24 hr tablet, Take 3 tablets (750 mg total) by mouth 1 (one) time each day., Disp: , Rfl: levothyroxine (SYNTHROID, LEVOTHROID) 75 mcg tablet, Take 1 tablet (75 mcg total) by mouth 1 (one) time each day., Disp: , Rfl: memantine (NAMENDA XR) 28 mg extended release capsule, Take 1 capsule (28 mg total) by mouth 1 (one) time each day. for 90 days, Disp: , Rfl: olmesartan (BENICAR) 5 mg tablet, Take 1 tablet (5 mg total) by mouth 1 (one) time each day., Disp: , Rfl: sertraline (ZOLOFT) 100 mg tablet, Take 1 tablet (100 mg total) by mouth 1 (one) time each day., Disp: , Rfl: amitriptyline (ELAVIL) 100 mg tablet, Take 1 tablet (100 mg total) by mouth at bedtime., Disp: , Rfl: levETIRAcetam (KEPPRA) 1,000 mg tablet, Take 1 tablet (1,000 mg total) by mouth 2 (two) times a day., Disp: , Rfl: Recording Techniques A digital video EEG was performed using the standard international 10-20 electrode placement and single channel EKG electrode. Total Recording Time: 25 minutes Montages: Standard 10-20 system montages Type of Study: Routine EEG Video recorded: Yes Conditions of Recording: Awake - drowsy Results Background: The record was well organized. The waking EEG was characterized by a symmetrical, well-formed and modulated 8.5 Hz posterior dominant rhythm, with medium amplitude (20-70 uV) and reactive to eye opening. The background over the rest of the head consisted of a mixture of alpha and beta frequencies. Sleep: During drowsiness, the alpha rhythm attenuated and diffuse background slowing appeared. Stage 2 sleep was not recorded. Focal slowing: There were no focal abnormalities or persistent asymmetries. Epileptiform discharges: None Activation Procedures: Hyperventilation: Hyperventilation for 3 minutes produced generalized slowing Photic Simulation: Produced an occipital driving response at some frequencies, but did not result in any abnormal discharges. Clinical events: None Heart Rate: Normal sinus rhythm Classification of the findings: Normal Impression This is a normal routine EEG recording in the awake and drowsy states. There were no seizures, periodic patterns, or epileptiform discharges. There is no focal slowing or persistent focal asymmetries of the background rhythms. However, a normal EEG does not rule out epilepsy or seizure. Clinical correlation is advised. CC No ref. provider found Sriram Akins MD Epileptologist [facility] [place] [facility] us Freida JENNINGS NEUROLOGY ORDERABLES Edited Res ult - Final * Respiratory virus panel molecular study (03/09/2025 8:55 AM EDT) Adenovirus Detection by PCR Not Detected Not Detected LAB MICROBIOLOGY METHOD 03/09/2025 10:[address] [facility] Influenza A PCR Not Detected Not Detected LAB MICROBIOLOGY METHOD 03/09/2025 10:[address] [facility] Influenza B PCR Not Detected Not Detected LAB MICROBIOLOGY METHOD 03/09/2025 10:[address] [facility] Coronavirus 229E Not Detected Not Detected LAB MICROBIOLOGY METHOD 03/09/2025 10:[address] [facility] Coronavirus HKU1 Not Detected Not Detected LAB MICROBIOLOGY METHOD 03/09/2025 10:[address] [facility] Coronavirus OC43 Not Detected Not Detected LAB MICROBIOLOGY METHOD 03/09/2025 10:[address] [facility] Coronavirus NL63 Not Detected Not Detected LAB MICROBIOLOGY METHOD 03/09/2025 10:[address] [facility] Parainfluenza Virus 1 Not Detected Not Detected LAB MICROBIOLOGY METHOD 03/09/2025 10:[address] [facility] Parainfluenza Virus 2 Not Detected Not Detected LAB MICROBIOLOGY METHOD 03/09/2025 10:[address] [facility] Parainfluenza Virus 3 Not Detected Not Detected LAB MICROBIOLOGY METHOD 03/09/2025 10:[address] [facility] Parainfluenza Virus 4 Not Detected Not Detected LAB MICROBIOLOGY METHOD 03/09/2025 10:[address] [facility] RSV PCR Not Detected Not Detected LAB MICROBIOLOGY METHOD 03/09/2025 10:[address] [facility] Human Metapneumovirus A and B Not Detected Not Detected LAB MICROBIOLOGY METHOD 03/09/2025 10:[address] [facility] Rhinovirus/Entero virus Not Detected Not Detected LAB MICROBIOLOGY METHOD 03/09/2025 10:[address] [facility] Bordetella pertussis Not Detected Not Detected LAB MICROBIOLOGY METHOD 03/09/2025 10:[address] [facility] Bordetella parapertussis Not Detected Not Detected LAB MICROBIOLOGY METHOD 03/09/2025 10:[address] [facility] Mycoplasma pneumo by PCR Not Detected Not Detected LAB MICROBIOLOGY METHOD 03/09/2025 10:[address] [facility] Chlamydia pneumoniae Not Detected Not Detected LAB MICROBIOLOGY METHOD 03/09/2025 10:[address] [facility] SARS COV-2 Not Detected Not Detected LAB MICROBIOLOGY METHOD 03/09/2025 10:[address] [facility] Swab Nasopharyngeal structure / Unknown Non-blood Collection / Unknown 03/09/2025 8:55 AM EDT 03/09/2025 9:08 AM EDT [facility] - 03/09/2025 10:06 AM EDT Testing was performed using the [employer] Respiratory Pathogen PCR Assay. All results must be correlated with the clinical findings. Results should not be used as the sole basis for diagnosis. False Negative results may occur from the presence of sequence variants in the region targeted by the assay or the presence of inhibitors. Results may be affected by concurrent antiviral/antimicrobial therapy or levels of organisms that are below the limit of detection. Valente JENNINGS LAB MICROBIOLOGY - GENERA L ORDERABLES Final Result [facility] [address] [place] [address], * (ABNORMAL) Drug abuse screen 8a panel, urine (03/09/2025 6:28 AM EDT) Amphetamine Screen, Ur Negative Negative LAB CHEMISTRY METHOD 5 8:[address] [facility] Comment:Certain OTC medicati ons containing ephedrine, phenylephrine, pseudoephedrine and phenylpropanolamine can cause false positive results. Barbiturate Screen, Ur Negative Negative [facility] Benzodiazepine Screen, Ur Negative Negative LAB CHEMISTRY METHOD 5 8:20 AM [facility] Cocaine Screen, Ur Negative Negative LAB CHEMISTRY METHOD 5 8:20 AM [facility] Opiate Screen, Ur Negative Negative LAB CHEMISTRY METHOD 5 8:20 AM [facility] Cannabinoid (THC) Screen, Ur Positive(A ) Negative LAB CHEMISTRY METHOD 5 8:20 AM [facility] Comment:Specimens from patie nts taking pantoprazole sodium (Protonix) have been shown to produce false positive results. Oxycodone Screen, Ur Negative Negative LAB CHEMISTRY METHOD 5 8:20 AM [facility] Fentanyl, Ur Negative Negative LAB CHEMISTRY METHOD 5 8:20 AM [facility] Urine Urine specimen obtained by clean catch procedure / Unknown Non-blood Collection / Unknown 03/09/2025 6:28 AM EDT 03/09/2025 7:[address] [facility] - 03/09/2025 8:20 AM EDT Assay cutoffs: Amphetamines 1000 ng/mL Barbiturates 200 ng/mL Benzodiazepines 200 ng/mL Cocaine 300 ng/mL Fentanyl 1 ng/mL Opiates 300 ng/mL Oxycodone 100 ng/mL THC 50 ng/mL Semi-quantitative assay for screening purposes only. Unconfirmed screening result should not be used for non-medical purposes. *ALTERNATE METHOD CONFIRMATION DONE UPON REQUEST ONLY* Freida JENNINGS LAB URINE ORDERABLES Final Resu lt Performing Organization Address [facility]/ZIP Co de Phone Number [facility] [address] [place] [address], [place] [phone] * (ABNORMAL) Lipid panel with reflex to direct LDL (03/09/2025 6:16 AM EDT) Cholesterol 283(H) 0 - 200 mg/dL LAB CHEMISTRY METHOD 03/09/2025 7:[address] [facility] Triglycerides 158(H) 0 - 150 mg/dL LAB CHEMISTRY METHOD 03/09/2025 7:47 AM [facility] HDL 53 >=40 mg/dL LAB CHEMISTRY METHOD 03/09/2025 7:[address] [facility] LDL Calculated 198(H) 0 - 100 mg/dL LAB CHEMISTRY METHOD 03/09/2025 7:47 AM [facility] VLDL Cholesterol Escobar 31.6 mg/dL LAB CHEMISTRY METHOD 03/09/2025 7:47 AM [facility] Non HDL Chol. (LDL+VLDL) 230(H) <145 mg/dL LAB CHEMISTRY METHOD 03/09/2025 7:[address] [facility] Chol/HDL Ratio 5.3(H) 0.0 - 4.4 LAB CHEMISTRY METHOD 03/09/2025 7:47 AM [facility] Blood Venous blood specimen / Unknown Venipuncture / Unknown 03/09/2025 6:16 AM EDT 03/09/2025 6:29 AM EDT Freida JENNINGS LAB BLOOD ORDERABLES Final Resu lt [facility] [address] [place] [address], * (ABNORMAL) Complete blood count (03/09/2025 6:16 AM EDT) [facility] WBC 5.9 4.8 - 10.8 K/mcL LAB HEMETOLOGY METHOD 03/09/2025 6:[address] [facility] RBC 3.60(L) 3.80 - 4.80 M/mcL LAB HEMETOLOGY METHOD 03/09/2025 6:[address] [facility] Hemoglobin 10.6(L) 11.5 - 16.0 g/dL LAB HEMETOLOGY METHOD 03/09/2025 6:[address] [facility] Hematocrit 33.4(L) 35.0 - 47.0 % LAB HEMETOLOGY METHOD 03/09/2025 6:[address] [facility] MCV 94.1 79.0 - 98.0 FL LAB HEMETOLOGY METHOD 03/09/2025 6:[address] [facility] MCH 29.9 27.0 - 32.0 pcg LAB HEMETOLOGY METHOD 03/09/2025 6:[address] [facility] MCHC 31.7(L) 32.0 - 37.0 g/dL LAB HEMETOLOGY METHOD 03/09/2025 6:[address] [facility] RDW 13.1 11.0 - 15.0 % LAB HEMETOLOGY METHOD 03/09/2025 6:[address] [facility] Platelets 257 130 - 400 K/mcL LAB HEMETOLOGY METHOD 03/09/2025 6:[address] [facility] MPV 9.9 7.0 - 11.0 FL LAB HEMETOLOGY METHOD 03/09/2025 6:[address] [facility] NRBC 0.0 <1.0 % LAB HEMETOLOGY METHOD 03/09/2025 6:[address] [facility] NRBC Absolute 0.00 <0.10 K/mcL LAB HEMETOLOGY METHOD 03/09/2025 6:[address] [facility] Blood Venous blood specimen / Unknown Venipuncture / Unknown 03/09/2025 6:16 AM EDT 03/09/2025 6:29 AM EDT us Lala Aguilar MD LAB BLOOD ORDERABLES Final Res ult [facility] [address] [place] [address], [place] [phone] * (ABNORMAL) Hepatic function panel (03/09/2025 6:16 AM EDT) Total Protein 5.9(L) 6.0 - 8.0 g/dL LAB CHEMISTRY METHOD 03/09/2025 2:07 PM [facility] Albumin 3.2 3.2 - 5.0 g/dL LAB CHEMISTRY METHOD 03/09/2025 2:07 PM [facility] Total Bilirubin 0.3 0.0 - 1.4 mg/dL LAB CHEMISTRY METHOD 03/09/2025 2:07 PM [facility] Bilirubin, Direct 0.1 0.0 - 0.3 mg/dL LAB CHEMISTRY METHOD 03/09/2025 2:07 PM [facility] Bilirubin, Indirect 0.2 0.0 - 1.1 mg/dL LAB CHEMISTRY METHOD 03/09/2025 2:07 PM [facility] ALT (SGPT) 14 10 - 60 unit/L LAB CHEMISTRY METHOD 03/09/2025 2:07 PM [facility] AST (SGOT) 9(L) 10 - 42 unit/L LAB CHEMISTRY METHOD 03/09/2025 2:07 PM [facility] Alkaline Phosphatase 48 42 - 121 unit/L LAB CHEMISTRY METHOD 03/09/2025 2:07 PM [facility] Blood Venous blood specimen / Unknown Venipuncture / Unknown 03/09/2025 6:16 AM EDT 03/09/2025 6:29 AM EDT Valente JENNINGS LAB BLOOD ORDERABLES Aleta l Result [facility] [address] [place] [address], [place] [phone] * Basic metabolic panel (03/09/2025 6:16 AM EDT) Only the most recent of2 resultswithin the time period is included. Sodium 138 133 - 145 mmol/L LAB CHEMISTRY METHOD 03/09/2025 7:47 AM [facility] Potassium 4.0 3.5 - 5.5 mmol/L LAB CHEMISTRY METHOD 03/09/2025 7:47 AM [facility] Chloride 105 96 - 110 mmol/L LAB CHEMISTRY METHOD 03/09/2025 7:47 AM [facility] CO2 27 21 - 32 mmol/L LAB CHEMISTRY METHOD 03/09/2025 7:47 AM [facility] Anion Gap 6 3 - 11 LAB CHEMISTRY METHOD 03/09/2025 7:47 AM [facility] Glucose 97 70 - 100 mg/dL LAB CHEMISTRY METHOD 03/09/2025 7:47 AM [facility] BUN 11 5 - 25 mg/dL LAB CHEMISTRY METHOD 03/09/2025 7:47 AM [facility] Creatinine 0.66 0.50 - 1.10 mg/dL LAB CHEMISTRY METHOD 03/09/2025 7:47 AM [facility] eGFR 96 >=60 mL/min/1. 73m2 LAB CHEMISTRY METHOD 03/09/2025 7:[address] [facility] Comment:Calculation based on the Chronic Kidney Disease Epidemiology Collaboration (CKD-EPI) equation refit without adjustment for race. BUN/Creatinine Ratio 16.7 LAB CHEMISTRY METHOD 03/09/2025 7:[address] [facility] Calcium 8.9 8.5 - 10.5 mg/dL LAB CHEMISTRY METHOD 03/09/2025 7:[address] [facility] Blood Venous blood specimen / Unknown Venipuncture / Unknown 03/09/2025 6:16 AM EDT 03/09/2025 6:29 AM EDT us Lala Aguilar MD LAB BLOOD ORDERABLES Final Res ult [facility] [address] [place] [address], * MR Brain wo Contrast (03/08/2025 8:51 PM EDT) Anatomical Region Laterality Modality Head and Neck Magnetic Resonan ce 03/08/2025 9:34 PM EDT Impressions 03/08/2025 9:34 PM EDT No acute findings. This document has been electronically signed by: Georgi Miller MD on 03/08/2025 21:34:44 Narrative 03/08/2025 9:34 PM EDT INDICATION: Mental status change, unknown cause MR Brain without gadolinium Comparison: None provided Findings: No restricted diffusion. No intra-axial mass or hemorrhage. Mild cerebral atrophy. There are a few scattered T2 and FLAIR hyperintensities in the subcortical and periventricular white matter consistent with minimal chronic small-vessel ischemic gliosis. No midline shift. No hydrocephalus. Vascular flow voids are intact. The orbits are normal. The sinuses and mastoid air cells are clear. No focal bone lesion. Procedure Note Georgi Miller MD - 03/08/2025 INDICATION: Mental status change, unknown cause MR Brain without gadolinium Comparison: None provided Findings: No restricted diffusion. No intra-axial mass or hemorrhage. Mild cerebral atrophy. There are a few scattered T2 and FLAIR hyperintensities in thesubcortical and periventricular white matter consistent with minimal chronic small-vessel ischemic gliosis. No midline shift. No hydrocephalus. Vascular flow voids are intact. The orbits are normal. The sinuses and mastoid air cells are clear. No focal bone lesion. IMPRESSION: No acute findings. This document has been electronically signed by: Georgi Miller MD on 03/08/2025 21:34:44 Freida JENNINGS IMG MRI PROCEDURES Final Result * Ammonia (03/08/2025 6:42 PM EDT) Pathologist [facility] Ammonia 28 11 - 35 mcmol/L LAB CHEMISTRY METHOD 03/08/2025 7:[address] [facility] Comment:Hemolysis present Blood Venous blood specimen / Unknown Venipuncture / Unknown 03/08/2025 6:42 PM EDT 03/08/2025 7:06 PM EDT Freida JENNINGS LAB BLOOD ORDERABLES Final Resu lt Performing Organization Address [facility] Co de Phone Number [facility] [address] [place] [address], [place] [phone] * Valproic acid level, total (03/08/2025 6:42 PM EDT) Pathologist [facility] Valproic Acid, Total 52 50 - 100 mcg/mL LAB CHEMISTRY METHOD 03/08/2025 7:[address] [facility] Blood Venous blood specimen / Unknown Venipuncture / Unknown 03/08/2025 6:42 PM EDT 03/08/2025 7:06 PM EDT Freida JENNINGS LAB BLOOD ORDERABLES Final Resu lt [facility] [address] [place] [address], [place] [phone] * (ABNORMAL) Urinalysis with reflex microscopic and culture (03/08/2025 3:24 PM EDT) Specific [place] Urine >1.045(H) 1.003 - 1.030 LAB URINALYSIS - AUTOMATED METHOD 03/08/2025 4:09 PM [facility] pH, Urine 6.0 5.0 - 8.0 pH LAB URINALYSIS - AUTOMATED METHOD 03/08/2025 4:09 PM [facility] Leukocytes, Urine Trace(A) Negative LAB URINALYSIS - AUTOMATED METHOD 03/08/2025 4:09 PM [facility] Nitrite, Urine Negative Negative LAB URINALYSIS - AUTOMATED METHOD 03/08/2025 4:09 PM [facility] Protein, Urine Negative <=Trace mg/dL LAB URINALYSIS - AUTOMATED METHOD 03/08/2025 4:09 PM [facility] Glucose, Urine Negative Negative mg/dL LAB URINALYSIS - AUTOMATED METHOD 03/08/2025 4:09 PM [facility] Ketones, Urine Trace(A) Negative mg/dL LAB URINALYSIS - AUTOMATED METHOD 03/08/2025 4:09 PM [facility] Urobilinogen , Urine 0.2 0.2 - 1.0 mg/dL LAB URINALYSIS - AUTOMATED METHOD 03/08/2025 4:09 PM [facility] Bilirubin, Urine Negative Negative LAB URINALYSIS - AUTOMATED METHOD 03/08/2025 4:09 PM [facility] Blood, Urine Negative Negative LAB URINALYSIS - AUTOMATED METHOD 03/08/2025 4:09 PM [facility] RBC, Urine 0.9 0 - 4 /HPF LAB URINALYSIS - AUTOMATED METHOD 03/08/2025 4:[address] [facility] WBC, Urine 4.7(H) 0 - 4 /HPF LAB URINALYSIS - AUTOMATED METHOD 03/08/2025 4:[address] [facility] Squamous Epithelial, Urine 20 0 - 60 /LPF LAB URINALYSIS - AUTOMATED METHOD 03/08/2025 4:[address] [facility] Bacteria, Urine Negative Negative /HPF LAB URINALYSIS - AUTOMATED METHOD 03/08/2025 4:[address] [facility] Hyaline Casts, Urine 0.4 0 - 3 /LPF LAB URINALYSIS - AUTOMATED METHOD 03/08/2025 4:[address] [facility] Urine Urine specimen obtained by clean catch procedure / Unknown Non-blood Collection / Unknown 03/08/2025 3:24 PM EDT 03/08/2025 3:51 PM EDT Lala Aguilar MD LAB URINE ORDERABLES Final Res ult Performing Organization Address City/[facility]/ZIP Co de Phone Number [facility] [address] [place] [address], [place] [phone] * Hernandez urine culture tube (03/08/2025 3:24 PM EDT) Extra Tube Hold for add-ons. 03/08/2025 5:[address] [facility] Comment:Auto resulted. Urine Urine specimen obtained by clean catch procedure / Unknown Non-blood Collection / Unknown 03/08/2025 3:24 PM EDT 03/08/2025 3:51 PM EDT us Lala Aguilar MD LAB URINE ORDERABLES Final Res ult Performing Organization Address City/[facility]/ZIP Co de Phone Number [facility] [address] [place] [address], [place] [phone] * Culture urine (03/08/2025 3:24 PM EDT) Culture, Urine No growth 03/09/2025 7:[address] [facility] Urine Urine specimen obtained by clean catch procedure / Unknown Non-blood Collection / Unknown 03/08/2025 3:24 PM EDT 03/08/2025 4:09 PM EDT Lala Aguilar MD LAB MICROBIOLOGY - GENERAL ORD ERABLES Final Result [facility] [address] [place] [address], [place] [phone] * ECG 12 lead (03/08/2025 12:13 PM EDT) Ventricular Rate ECG 87 BPM GEMUSE Atrial Rate 87 BPM GEMUSE P-R Interval 162 ms GEMUSE QRS Duration 90 ms GEMUSE Q-T Interval 378 ms GEMUSE QTc 454 ms GEMUSE P Wave [place] 19 degrees GEMUSE R [place] -26 degrees GEMUSE T [place] 98 degrees GEMUSE ECG Interpretation Normal sinus rhythm Nonspecific ST and T wave abnormality Abnormal ECG When compared with ECG of 03-DEC-2017 20:41, Nonspecific T wave abnormality now evident in Inferior leads Confirmed by Michael HEIN JOHN ([id number]) on 03/08/2025 7:23:19 PM GEMUSE 03/08/2025 12:1 3 PM EDT 03/08/2025 7:23 PM EDT Hakan Perdomo DO ECG ORDERABLES Final Resul t GEMUSE * POC glucose manually resulted (03/08/2025 12:08 PM EDT) Glucose POC 84 70 - 110 mg/dL Blood Capillary blood specimen / Unknown 03/08/2025 12:08 PM EDT Hakan Perdomo DO POINT OF CARE TEST ENTER/ED IT ORDERABLES Final Result * CT Angio Head/Neck Stroke wo and/or w Contrast (03/08/2025 12:07 PM EDT) Anatomical Region Laterality Modality Head and Neck Computed Tomogra phy 03/08/2025 12:2 3 PM EDT Impressions 03/08/2025 12:30 PM EDT NO LARGE VESSEL OCCLUSION. -------- FINAL REPORT -------- Dictated By: Afia Blank Dictated Date: 03/08/2025 12:23 ET Assigned Physician: Afia Blank Reviewed and Electronically Signed By: Afia Blank Signed Date: 03/08/2025 12:30 ET Workstation ID: [id number] Transcribed By: Self Edit Transcribed Date: 03/08/2025 12:26 ET Narrative 03/08/2025 12:30 PM EDT PROCEDURE: CTA HEAD AND NECK INDICATION: Neuro deficit, acute, stroke suspected TECHNIQUE: CTA of the head and neck with intravenous contrast. Multiplanar reformats. The examination was performed utilizing dose reduction techniques.3-D or MIP images were produced with postprocessing on an independent computer workstation. 90cc Omnipaque 370 injected. Scan was analyzed using [facility] Contact AI based computer aided triage software. Total DLP: 2871 mGy/cm COMPARISON: No priors available. FINDINGS: Noncon Brain: Dictated separately. CTA Neck: There is a left-sided aortic arch. Great vessels are patent with conventional anatomy. There is significant motion artifact the carotid bulbs but no high-grade stenosis is suspected. Cervical vertebral arteries are patent. No lung mass. Some hazy groundglass opacities nonspecific. Hiatal hernia. CTA Head: Intracranial portions of the internal carotid arteries are patent. Proximal middle and anterior circulation is patent. Vertebrobasilar system is patent. Proximal scientific informatics analyst are patent. Major dural venous sinuses opacify normally with contrast. Extracranial structures are unremarkable. Degenerative changes in the bones. Procedure Note Afia Blank MD - 03/08/2025 PROCEDURE: CTA HEAD AND NECK INDICATION: Neuro deficit, acute, stroke suspected TECHNIQUE: CTA of the head and neck with intravenous contrast. Multiplanarreformats. The examination was performed utilizing dose reductiontechniques.3-D or MIP images were produced with postprocessing on [facility] computer workstation. 90cc Omnipaque 370 injected. Scan wasanalyzed using [facility] Contact AI based computer aided triage software. Total DLP: 2871 mGy/cm COMPARISON: No priors available. FINDINGS: Noncon Brain: Dictated separately. CTA Neck: There is a left-sided aortic arch. Great vessels are patent withconventional anatomy. There is significant motion artifact the carotidbulbs but no high-grade stenosis is suspected. Cervical vertebral arteriesare patent. No lung mass. Some hazy groundglass opacities nonspecific. Hiatalhernia. CTA Head: Intracranial portions of the internal carotid arteries are patent. Proximal middle and anterior circulation is patent. Vertebrobasilar system is patent. Proximal scientific informatics analyst are patent. Major dural venous sinuses opacify normally with contrast. Extracranial structures are unremarkable. Degenerative changes in thebones. IMPRESSION: NO LARGE VESSEL OCCLUSION. -------- FINAL REPORT -------- Dictated By: Afia Blank Dictated Date: 03/08/2025 12:23 ET Assigned Physician: Afia Blank Reviewed and Electronically Signed By: Afia Blank Signed Date: 03/08/2025 12:30 ET Workstation ID: [id number] Transcribed By: Self Edit Transcribed Date: 03/08/2025 12:26 ET Hakan Perdomo DO IMG CT PROCEDURES Final Res ult * POCT Glucose, blood (03/08/2025 12:07 PM EDT) Glucose POCT 84 70 - 100 mg/dL 03/08/2025 12:[address] [facility] Blood Capillary blood specimen / Unknown 03/08/2025 12:07 PM EDT 03/08/2025 12:09 PM EDT Hakan Perdomo DO LAB POINT OF CARE T EST DOCKED DEVICE UNSOLICITED RESULTS Final Result [facility]) [facility] [address] [place] [address], * XR Chest 1 View (03/08/2025 12:05 PM EDT) Anatomical Region Laterality Modality Body Radiographic Nelia ging 03/08/2025 12:1 5 PM EDT Impressions 03/08/2025 12:15 PM EDT Impression: No active pulmonary process identified. Telerad DICK ([id number]) -------- FINAL REPORT -------- Dictated By: Lulu Patel Dictated Date: 03/08/2025 12:15 ET Assigned Physician: Lulu Patel Reviewed and Electronically Signed By: Lulu Patel Signed Date: 03/08/2025 12:15 ET Workstation ID: [id number] Transcribed By: Self Edit Transcribed Date: 03/08/2025 12:15 ET Narrative 03/08/2025 12:15 PM EDT History: Stroke. Comparison: 02/12/22 Findings: Portable AP upright chest at noon. The cardiac silhouette remains normal in size. Hilar contours and pulmonary vascularity appear normal. The lungs are grossly clear. The costophrenic angles are sharp. Procedure Note Lulu Patel MD - 03/08/2025 History: Stroke. Comparison: 02/12/22 Findings: Portable AP upright chest at noon. The cardiac silhouette remains normalin size. Hilar contours and pulmonary vascularity appear normal. The lungsare grossly clear. The costophrenic angles are sharp. IMPRESSION: Impression: No active pulmonary process identified. Telerad DICK ([id number]) -------- FINAL REPORT -------- Dictated By: Lulu Patel Dictated Date: 03/08/2025 12:15 ET Assigned Physician: Lulu Patel Reviewed and Electronically Signed By: Lulu Patel Signed Date: 03/08/2025 12:15 ET Workstation ID: [id number] Transcribed By: Self Edit Transcribed Date: 03/08/2025 12:15 ET Hakan C Cauchon DO IMG XR PROCEDURES Final Res ult * Levetiracetam level (03/08/2025 11:53 AM EDT) Levetiracetam 54.4 3.0 - 60.0 ug/mL 03/10/2025 6:42 AM EDT [facility] Comment: Steady state trough serum or plasma levels following doses of 1000 to 3000 mg/Day: 3 to 37 ug/mL. The same dosage regimen will typically result in peak levels of 10 to 60 ug/mL, at approximately 1.5 hours post dose. If applicable, any drug confirmation testing reported here was developed and the performance characteristics determined by [facility]. This confirmation testing has not been cleared or approved by the FDA. The laboratory is regulated under CLIA as qualified to perform high-complexity testing. This test is used for patient testing purposes. It should not be regarded as investigational or for research. Test performed at [facility], [address] , [place] [address] Jennyfer Escobedo MD, PhD - Sports Writer Blood Venous blood specimen / Unknown Venipuncture / Unknown 03/08/2025 11:53 AM EDT 03/08/2025 12:16 PM EDT Hakan Perdomo DO LAB BLOOD ORDERABLES Final Result [facility] [address] [place] [address] * Valproic acid level, total and free (03/08/2025 11:53 AM EDT) Valproic Acid, Free 9.2 4.8 - 17.3 mg/L 03/13/2025 4:12 AM EDT [facility] Comment: Note: Non-linear drug binding properties result in the fraction of Free Valproic Acid increasing as total drug increases. The free fraction may range from 5% to 25% for the total drug range of 30-160 mg/L. Valproic Acid 70.8 50.0 - 100.0 mg/L 03/13/2025 4:12 AM EDT [facility] Comment: Test Performed by [employer] [facility] [employer] [facility], [address] [place] [address] Clement Segura M.D., Ph.D., Director of Laboratories , [facility] [id number] Blood Venous blood specimen / Unknown Venipuncture / Unknown 03/08/2025 11:53 AM EDT 03/08/2025 12:16 PM EDT us Hakan Perdomo DO LAB BLOOD ORDERABLES Final Result [facility] [address] [place] [address] * CT Head Stroke wo Contrast (03/08/2025 11:48 AM EDT) Anatomical Region Laterality Modality Head and Neck Computed Tomogra phy 03/08/2025 11:5 3 AM EDT Impressions 03/08/2025 11:56 AM EDT Impression: No acute hemorrhage or intracranial mass effect. No significant change. The findings were conveyed to the referring provider by secure text message (Roamler) at the time of interpretation on 03/08/25. Telerad PA ([id number]) A Critical Document Only message has been documented for the office of HAKAN PERDOMO in the [employer]™ system on 03/08/2025 11:55 AM, Message ID [id number]. -------- FINAL REPORT -------- Dictated By: Lulu Patel Dictated Date: 03/08/2025 11:53 ET Assigned Physician: Lulu Patel Reviewed and Electronically Signed By: Lulu Patel Signed Date: 03/08/2025 11:56 ET Workstation ID: [id number] Transcribed By: Self Edit Transcribed Date: 03/08/2025 11:53 ET Narrative 03/08/2025 11:56 AM EDT History: Stroke. Weakness. Comparison: 07/18/20 Technique: Contiguous axial images were obtained at 2.5 mm intervals through the posterior fossa and at 5 mm intervals through the remainder of the brain without intravenous contrast. DLP: 716.71 mGy/cm GE LightSpeed VCT Iterative reconstruction technique Findings: Moderate generalized cerebral volume loss is again demonstrated. Hernandez-white differentiation is maintained. No abnormal intra- or extra-axial masses or fluid collections are seen. There is no evidence of acute intracranial hemorrhage. The included portions of the paranasal sinuses and mastoid air cells are clear. The calvarium is intact. Procedure Note Lulu Patel MD - 03/08/2025 History: Stroke. Weakness. Comparison: 07/18/20 Technique: Contiguous axial images were obtained at 2.5 mm intervalsthrough the posterior fossa and at 5 mm intervals through the remainder ofthe brain without intravenous contrast. DLP: 716.71 mGy/cm GE LightSpeed VCT Iterative reconstruction technique Findings: Moderate generalized cerebral volume loss is again demonstrated.Hernandez-white differentiation is maintained. No abnormal intra- orextra-axial masses or fluid collections are seen. There is no evidence ofacute intracranial hemorrhage. The included portions of the paranasal sinuses and mastoid air cells areclear. The calvarium is intact. IMPRESSION: Impression: No acute hemorrhage or intracranial mass effect. No significant change. The findings were conveyed to the referring provider by secure textmessage (Roamler) at the time of interpretation on 03/08/25. Telerad DICK ([id number]) A Critical Document Only message has been documented for the office ofHAKAN PERDOMO in the [employer]™ system on03/08/2025 11:55 AM, Message ID [id number]. -------- FINAL REPORT -------- Dictated By: Lulu Patel Dictated Date: 03/08/2025 11:53 ET Assigned Physician: Lulu Patel Reviewed and Electronically Signed By: Lulu Patel Signed Date: 03/08/2025 11:56 ET Workstation ID: [id number] Transcribed By: Self Edit Transcribed Date: 03/08/2025 11:53 ET Hakan Perdomo DO IMG CT PROCEDURES Final Res ult * Thyroid stimulating hormone with reflex to free t4 and free t3 (03/08/2025 11:31 AM EDT) Pathologist [facility] TSH 2.91 0.40 - 4.00 mcIU/mL LAB CHEMISTRY METHOD 03/08/2025 7:[address] [facility] Blood Venous blood specimen / Unknown Venipuncture / Unknown 03/08/2025 11:31 AM EDT 03/08/2025 11:42 AM EDT us Freida JENNINGS LAB BLOOD ORDERABLES Final Resu lt [facility] [address] [place] [address], * (ABNORMAL) CBC auto differential (03/08/2025 11:31 AM EDT) Only the most recent of2 resultswithin the time period is included. [facility] WBC 8.5 4.8 - 10.8 K/mcL LAB HEMETOLOGY METHOD 03/08/2025 11:[address] [facility] RBC 3.90 3.80 - 4.80 M/mcL LAB HEMETOLOGY METHOD [facility] Hemoglobin 11.9 11.5 - 16.0 g/dL LAB HEMETOLOGY METHOD [facility] Hematocrit 37.2 35.0 - 47.0 % LAB HEMETOLOGY METHOD 03/08/2025 11:[address] [facility] MCV 94.9 79.0 - 98.0 FL LAB HEMETOLOGY METHOD [facility]2025 [facility] MCH 30.4 27.0 - 32.0 pcg LAB HEMETOLOGY METHOD 03/08/2025 11:53 AM [facility] MCHC 32.0 32.0 - 37.0 g/dL LAB HEMETOLOGY METHOD 03/08/2025 11:53 AM [facility] RDW 13.2 11.0 - 15.0 % LAB HEMETOLOGY METHOD 03/08/2025 11:53 AM [facility] Platelets 293 130 - 400 K/mcL LAB HEMETOLOGY METHOD 03/08/2025 11:53 AM [facility] MPV 9.9 7.0 - 11.0 FL LAB HEMETOLOGY METHOD 03/08/2025 11:53 AM [facility] NRBC 0.0 <1.0 % LAB HEMETOLOGY METHOD 03/08/2025 11:53 AM [facility] NRBC Absolute 0.00 <0.10 K/mcL LAB HEMETOLOGY METHOD 03/08/2025 11:53 AM [facility] Neutrophils Relative 70.1 % LAB HEMETOLOGY METHOD 03/08/2025 11:53 AM [facility] Lymphocytes Relative 20.3 % LAB HEMETOLOGY METHOD 03/08/2025 11:53 AM [facility] Monocytes Relative 6.8 % LAB HEMETOLOGY METHOD 03/08/2025 11:53 AM [facility] Eosinophils Relative 1.2 % LAB HEMETOLOGY METHOD 03/08/2025 11:53 AM [facility] Basophils Relative 0.5 % LAB HEMETOLOGY METHOD 03/08/2025 11:53 AM [facility] Immature Granulocytes Relative 1.1 % LAB HEMETOLOGY METHOD 03/08/2025 11:53 AM [facility] Neutrophils Absolute 5.95 1.50 - 7.00 K/mcL LAB HEMETOLOGY METHOD 03/08/2025 11:53 AM [facility] Lymphocytes Absolute 1.72 1.00 - 5.00 K/mcL LAB HEMETOLOGY METHOD 03/08/2025 11:[address] [facility] Monocytes Absolute 0.58 0.20 - 1.00 K/[facility] LAB HEMETOLOGY METHOD 03/08/2025 11:[address] [facility] Eosinophils Absolute 0.10 0.00 - 0.50 K/[facility] LAB HEMETOLOGY METHOD 03/08/2025 11:[address] [facility] Basophils Absolute 0.04 0.00 - 0.20 K/[facility] LAB HEMETOLOGY METHOD 03/08/2025 11:53 AM EDT [facility] Immature Granulocytes Absolute 0.09(H) 0.00 - 0.03 K/[facility] LAB HEMETOLOGY METHOD 03/08/2025 11:[address] [facility] Blood Venous blood specimen / Unknown Venipuncture / Unknown 03/08/2025 11:31 AM EDT 03/08/2025 11:42 AM EDT us Hakan Perdomo DO LAB BLOOD ORDERABLES Final Result [facility] [address] [place] [address], [place] [phone] * Activated partial thromboplastin time (03/08/2025 11:31 AM EDT) aPTT 29.4 24.1 - 39.3 sec LAB COAGULATION METHOD 03/08/2025 11:[address] [facility] Blood Venous blood specimen / Unknown Venipuncture / Unknown 03/08/2025 11:31 AM EDT 03/08/2025 11:42 AM EDT us Hakan Perdomo DO LAB BLOOD ORDERABLES Final Result [facility] [address] [place] [address], [place] [phone] * Prothrombin time with INR (03/08/2025 11:31 AM EDT) Protime 11.8 10.6 - 13.9 sec LAB COAGULATION METHOD 03/08/2025 11:[address] [facility] INR 0.9 LAB COAGULATION METHOD 03/08/2025 11:[address] [facility] Blood Venous blood specimen / Unknown Venipuncture / Unknown 03/08/2025 11:31 AM EDT 03/08/2025 11:42 AM EDT Hakan Perdomo DO LAB BLOOD ORDERABLES Final Result Performing Organization Address [facility]/ZIP Co de Phone Number [facility] [address] [place] [address], [place] [phone] * Ethanol (03/08/2025 11:31 AM EDT) [facility] Ethanol Level <3 0 - 10 mg/dL LAB CHEMISTRY METHOD 03/08/2025 6:[address] [facility] Blood Venous blood specimen / Unknown Venipuncture / Unknown 03/08/2025 11:31 AM EDT 03/08/2025 11:42 AM EDT Freida JENNINGS LAB BLOOD ORDERABLES Final Resu lt [facility] [address] [place] [address], [place] [phone] * (ABNORMAL) Phenytoin level, total (dilantin) (03/08/2025 11:31 AM EDT) [facility] Phenytoin Level 1.5(L) 10.0 - 20.0 mcg/mL LAB CHEMISTRY METHOD 03/08/2025 12:[address] [facility] Blood Venous blood specimen / Unknown Venipuncture / Unknown 03/08/2025 11:31 AM EDT 03/08/2025 11:42 AM EDT Hakan Perdomo DO LAB BLOOD ORDERABLES Final Result [facility] [address] [place] [address], [place] [phone] * CT Abdomen Pelvis w Contrast (01/22/2025 2:33 PM EDT) Anatomical Region Laterality Modality Body Computed Tomogra phy 01/22/2025 3:06 PM EDT Impressions 01/22/2025 3:13 PM EDT Left lower quadrant epiploic appendagitis. -------- FINAL REPORT -------- Dictated By: EDENILSON LIZ Dictated Date: 01/22/2025 15:06 ET Assigned Physician: EDENILSON LIZ Reviewed and Electronically Signed By: EDENILSON LIZ Signed Date: 01/22/2025 15:13 ET Workstation ID: [id number] Transcribed By: Self Edit Transcribed Date: 01/22/2025 15:06 ET Narrative 01/22/2025 3:13 PM EDT PROCEDURE: CT ABDOMEN/PELVIS INDICATION: Pain TECHNIQUE: CT of the abdomen and pelvis following the intravenous administration of 90cc Isovue 370. Multiplanar reformats. The examination was performed utilizing dose reduction techniques. Total DLP 825 COMPARISON: No priors available. FINDINGS: LOWER THORAX: Lung bases are clear. Moderate hiatal hernia. HEPATOBILIARY: Hepatic steatosis. Gallbladder and biliary tree are normal. SPLEEN: No splenomegaly. PANCREAS: No focal mass or ductal dilatation. ADRENALS: No nodules. KIDNEYS/URETERS: No hydronephrosis, stones, or solid mass. Left renal cyst. PELVIC ORGANS/BLADDER: Uterus and bladder are within normal limits. No adnexal mass or pelvic lymphadenopathy. PERITONEUM / RETROPERITONEUM: No retroperitoneal or mesenteric lymphadenopathy. Edematous fat density structure adjacent to the descending colon in the left lower quadrant anteriorly. No fluid collection or free air. VESSELS: Portal vein is patent. Abdominal aorta is normal in size. GI TRACT: Large stool throughout the colon. No bowel obstruction or wall thickening. Appendix not visualized. No evidence of appendicitis in the right lower quadrant. BONES AND SOFT TISSUES: Postsurgical changes along the ventral abdominal wall. Right inguinal hernia repair with Prolene plug in place. Small fat-containing left inguinal hernia. Degenerative changes seen throughout the bones. No acute fracture. Procedure Note Edenilson Liz MD - 01/22/2025 PROCEDURE: CT ABDOMEN/PELVIS INDICATION: Pain TECHNIQUE: CT of the abdomen and pelvis following the intravenousadministration of 90cc Isovue 370. Multiplanar reformats. The examinationwas performed utilizing dose reduction techniques. Total DLP 825 COMPARISON: No priors available. FINDINGS: LOWER THORAX: Lung bases are clear. Moderate hiatal hernia. HEPATOBILIARY: Hepatic steatosis. Gallbladder and biliary tree arenormal. SPLEEN: No splenomegaly. PANCREAS: No focal mass or ductal dilatation. ADRENALS: No nodules. KIDNEYS/URETERS: No hydronephrosis, stones, or solid mass. Left renalcyst. PELVIC ORGANS/BLADDER: Uterus and bladder are within normal limits. Noadnexal mass or pelvic lymphadenopathy. PERITONEUM / RETROPERITONEUM: No retroperitoneal or mesentericlymphadenopathy. Edematous fat density structure adjacent to thedescending colon in the left lower quadrant anteriorly. No fluidcollection or free air. VESSELS: Portal vein is patent. Abdominal aorta is normal in size. GI TRACT: Large stool throughout the colon. No bowel obstruction or wallthickening. Appendix not visualized. No evidence of appendicitis in theright lower quadrant. BONES AND SOFT TISSUES: Postsurgical changes along the ventral abdominalwall. Right inguinal hernia repair with Prolene plug in place. Smallfat-containing left inguinal hernia. Degenerative changes seen throughoutthe bones. No acute fracture. IMPRESSION: Left lower quadrant epiploic appendagitis. -------- FINAL REPORT -------- Dictated By: EDENILSON LIZ Dictated Date: 01/22/2025 15:06 ET Assigned Physician: EDENILSON LIZ Reviewed and Electronically Signed By: EDENILSON LIZ Signed Date: 01/22/2025 15:13 ET Workstation ID: [id number] Transcribed By: Self Edit Transcribed Date: 01/22/2025 15:06 ET us Elen A Dilan MD IMG CT PROCEDURES Final Result * Lactate, with reflex (01/22/2025 1:12 PM EDT) [facility] LACTIC ACID 1.4 0.4 - 2.0 mmol/L LAB CHEMISTRY METHOD 01/22/2025 1:[address] [facility] Blood Venous blood specimen / Unknown Venipuncture / Unknown 01/22/2025 1:12 PM EDT 01/22/2025 1:19 PM EDT us Elen Kong MD LAB BLOOD ORDERABLES Final Resul t Performing Organization Address City/[facility]/ZIP Co de Phone Number [facility] [address] [place] [address], [place] [phone] * (ABNORMAL) Lipase (01/22/2025 11:45 AM EDT) [facility] Lipase 10(L) 13 - 75 unit/L LAB CHEMISTRY METHOD 01/22/2025 1:[address] [facility] Blood Venous blood specimen / Unknown Venipuncture / Unknown 01/22/2025 11:45 AM EDT 01/22/2025 12:58 PM EDT Juan Jose Denney DO LAB BLOOD ORDERABLES Final Res ult [facility] [address] [place] [address], [place] [phone] * (ABNORMAL) Comprehensive metabolic panel (01/22/2025 11:45 AM EDT) [facility] Sodium 140 133 - 145 mmol/L LAB CHEMISTRY METHOD 01/22/2025 1:[address] [facility] Potassium 4.4 3.5 - 5.5 mmol/L LAB CHEMISTRY METHOD 01/22/2025 1:[address] [facility] Chloride 105 96 - 110 mmol/L LAB CHEMISTRY METHOD 01/22/2025 1:29 PM [facility] CO2 26 21 - 32 mmol/L LAB CHEMISTRY METHOD 01/22/2025 1:29 PM [facility] Anion Gap 9 3 - 11 LAB CHEMISTRY METHOD 01/22/2025 1:29 PM [facility] Glucose 131(H) 70 - 100 mg/dL LAB CHEMISTRY METHOD 01/22/2025 1:29 PM [facility] BUN 16 5 - 25 mg/dL LAB CHEMISTRY METHOD 01/22/2025 1:29 PM [facility] Creatinine 0.93 0.50 - 1.10 mg/dL LAB CHEMISTRY METHOD 01/22/2025 1:29 PM [facility] eGFR 68 >=60 mL/min/1. 73m2 LAB CHEMISTRY METHOD 01/22/2025 1:29 PM [facility] Comment:Calculation based on the Chronic Kidney Disease Epidemiology Collaboration (CKD-EPI) equation refit without adjustment for race. BUN/Creatinine Ratio 17.2 LAB CHEMISTRY METHOD 01/22/2025 1:29 PM [facility] Calcium 9.7 8.5 - 10.5 mg/dL LAB CHEMISTRY METHOD 01/22/2025 1:29 PM [facility] AST (SGOT) 15 10 - 42 unit/L LAB CHEMISTRY METHOD 01/22/2025 1:29 PM [facility] ALT (SGPT) 17 10 - 60 unit/L LAB CHEMISTRY METHOD 01/22/2025 1:29 PM [facility] Alkaline Phosphatase 79 42 - 121 unit/L LAB CHEMISTRY METHOD 01/22/2025 1:29 PM [facility] Total Protein 7.9 6.0 - 8.0 g/dL LAB CHEMISTRY METHOD 01/22/2025 1:29 PM [facility] Albumin 3.9 3.2 - 5.0 g/dL LAB CHEMISTRY METHOD 01/22/2025 1:[address] [facility] Total Bilirubin 0.4 0.0 - 1.4 mg/dL LAB CHEMISTRY METHOD 01/22/2025 1:[address] [facility] Blood Venous blood specimen / Unknown Venipuncture / Unknown 01/22/2025 11:45 AM EDT 01/22/2025 12:58 PM EDT us Juan Jose Denney DO LAB BLOOD ORDERABLES Final Res ult [facility] [address] [place] [address], [place] [phone] from Last 3 Months Insurance MEDICARE [facility] Advance Directives * Full Code - Default (Latest Code Status on File) Date Activated Date Inactivated Comments 03/08/2025 3:03 PM 03/09/2025 5:22 PM This is orde r is used when code status has not been discussed with the patient, or code status is otherwise unknown/unconfirmed To update the patient's code status, place a code status order. Do not modify or discontinue any currently active code status orders. Care Teams Aircraft Powertrain Repairer Relationship Specialty Start Date End Date Ramiro Borrero MD [address] [place] [phone] PCP - General Family Medicine 01/22/25
== END 2025-03-15 15:05 | disposition home or self-care (01) ==
LOC: HO.HSMS 13:22
PROVIDERS: Visit Provider Nurse Practitioner Family
DX: F03.90 Unspecified dementia, unspecified severity, without behavioral disturbance, psychotic disturbance, mood disturbance, and anxiety (principal); R56.9 Unspecified convulsions; R25.1 Tremor, unspecified; R29.6 Repeated falls
CPT/HCPCS: 99214

== ENCOUNTER → 2025-03-15 13:21 | Outpatient (BNVA) | payer MEDICARE, OTHER, SELFPAY | PROVIDERS: Visit Provider Nurse Practitioner Family | DX: R56.9 Unspecified convulsions (principal); F03.90 Unspecified dementia, unspecified severity, without behavioral disturbance, psychotic disturbance, mood disturbance, and anxiety; R29.6 Repeated falls | CPT/HCPCS: 99212 ==

== ENCOUNTER → 2025-04-21 08:45 | Outpatient (BNV) | payer MEDICARE, OTHER, SELFPAY | PROVIDERS: PCP Family Medicine; Visit Provider Radiology Diagnostic Radiology | DX: R56.9 Unspecified convulsions (principal) | CPT/HCPCS: 70553 ==

== ENCOUNTER 2025-04-21 08:46 | Outpatient (REF) | payer MEDICARE, OTHER, SELFPAY ==
--- NOTE | ~2025-04-21 | MR_ITS ---
EXAMINATION: MR BRAIN WITHOUT AND WITH CONTRAST CLINICAL INFORMATION: Seizures. COMPARISON: None available. TECHNIQUE: Multiplanar, multisequence MRI of the brain was obtained before and after the intravenous administration of 7.5 mL gadolinium based (Gadavist) without reported immediate complications.. FINDINGS: No restricted diffusion. No acute intracranial hemorrhage, mass effect, midline shift, hydrocephalus or herniation. No abnormal enhancing lesion within the intra-axial or the extra-axial compartment of the cranium. Bilateral, a few scattered nonspecific white matter T2 FLAIR signal foci involving mostly the supratentorial compartment. Prominence of the extra-axial CSF spaces cerebral sulci and ventricles involving mostly the frontoparietal lobes. Flow-void signal within the main cerebral vessels is normal. Sellar/suprasellar region demonstrated no signal abnormality or masses. Craniocervical junction demonstrates normal position of the cerebellar tonsils. MR/MR head/brain wo/w con IMPRESSION: No acute brain abnormality. No abnormal enhancing lesion. Bifrontal biparietal lobe atrophy. Nonspecific white matter T2 FLAIR signal. Electronically signed by: Lee Soliman MD 04/21/2025 10:57 AM EDT
--- OUTSIDE RECORDS SUMMARY | 2025-04-21 09:00 | XMS_ITS | Clinical Summary ---
Author Organization [facility] Address [address] [place] [phone] Phone Care Team Providers Care Machine Load Clerk Name Role Phone Ramiro Borrero MD Primary Care Provider Allergies Active Allergy Reactions Criticality Noted Date Comments Cefoxitin Anaphylaxis High 03/17/2017 Ondansetron Anaphylaxis High 09/18/2017 Medications amitriptyline (ELAVIL) 100 MG tablet Take 100 mg by mouth. Active albuterol 90 mcg/actuation inhaler Inhale into the lungs. Active SUMAtriptan (IMITREX) 100 MG tablet Take 100 mg by mouth. Active NEBULIZER ACCESSORIES (NEBULIZER MISC) as directed A ctive atorvastatin (LIPITOR) 20 MG tablet Take 20 mg by mouth. Active levETIRAcetam (KEPPRA) 1000 MG tablet Take 1,750 mg by mouth 2 (two) times a day. 8 Active carBAMazepine (TEGRETOL) 200 mg tablet Take 200 mg by mouth 3 (three) times a day. 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 Not on wes e 01/17/2023 Are you concerned about learning? Not on file 01/17/2023 No 01/17/2023 No 01/17/2023 Digital Access Answer Date Recorded No 02/15/2023 No 02/15/2023 Reliable internet access at home? Not on file 02/15/2023 Device with a working camera? Not on file Comments Unknown Sex and Gender Information Value Date Recorded Sex Assigned at Not on file Legal Sex Female 9:53 PM EDT Gender Identity Not on file Sexual Orientation Not on file Last Filed Vital Signs Vital Sign Reading Time Taken Comments Blood Pressure 122/72 12/01/2017 1:29 PM EDT Pulse 102 12/01/2017 1:29 PM EDT Temperature 36.3 C (97.4 F) 03/11/2013 3:01 AM EDT Respiratory Rate - - Oxygen Saturation 96% 12/01/2017 1:29 PM EDT Inhaled Oxygen Concentration - - Weight 65.7 kg (144 lb 12.8 oz) 12/01/2017 1:29 PM EDT Height 157.5 cm (5' 2 ) 12/01/2017 1:29 PM EDT Body Mass Index 26.48 12/01/2017 1:29 PM EDT Plan of Treatment Health Maintenance Due Date Last Done Comments Adult Td,Tdap Booster 1955 CARBAMAZEPINE (TEGRETOL) LEVEL 1957 LIPID PANEL 1957 DEPRESSION SCREENING 1969 HEPATITIS C SCREENING 1975 HEPATITIS A VACCINES (1 of 2 - Risk 2-dose series) 1976 MAMMOGRAM 1997 COLOGUARD 2002 COLONOSCOPY 2002 COLORECTAL CANCER SCREENING 2002 FIT TEST 2002 FOBT 2002 SIGMOIDOSCOPY 2002 VIRTUAL COLONOSCOPY 2002 ZOSTER VACCINES (1 of 2) 2007 RSV VACCINE (1 - Risk 60-74 years 1-dose series) 2017 PNEUMOCOCCAL VACCINES (50+ years) (2 of 2 - PCV) 08/18/2020 08/18/2019 OSTEOPOROSIS SCREENING INITI AL (ONE-TIME) 2022 COVID-19 VACCINE (3 - 2023-2 5 season) 2024 12/15/2020, 11/24/2020 SMOKING STATUS SCREENING (On ce After 26 Yrs) Completed 07/16/2019 HIB VACCINES Aged Out No longer eligi ble based on patient's age to complete this topic MENINGOCOCCAL VACCINES (ACWY) Aged Out No longer eligible based on patient's age to complete this topic MENINGOCOCCAL VACCINES (B) Aged Out N o longer eligible based on patient's age to complete this topic Medical Devices Not on file Insurance MEDICARE PART A & B [facility] MEDICARE PART A & B [facility] MEDICARE PART A & B [facility] MEDICARE PART A & B Member Subscriber Plan / Payer (Ef fective 2020-Present) Name:Nancy Corrigan Member ID:[id number] Relation to Subscriber:Self Name:Nancy Corrigan Subscriber ID:[id number] Payer ID:[id number] Group ID:Not on file Type:Medicare Address[facility] [employer] [facility] [employer] [address] A & B MEDICARE PART A & B HEALTH MEDICARE PART A & B HEALTH MEDICARE PART A & B HEALTH MEDICARE PART A & B Care Teams Machine Load Clerk Relationship Specialty Start Date End Date Ramiro Borrero MD [email or web address] PCP - General Family Medicine 09/19/17 Additional Source Comments The information contained in this document represents components of the legal health record. It is not the complete legal health record.[facility]
--- OUTSIDE RECORDS SUMMARY | 2025-04-21 09:00 | XMS_ITS | Clinical Summary ---
Author Organization [facility] Address [address] [place] [address] Phone Care Team Providers Care Fountain Supervisor Name Role Phone Ramiro Borrero MD Primary Care Provider [phone] Allergies Active Allergy Reactions Criticality Noted Date [...] - 03/09/2025 3:17 PM EDT Hospital Encounter [facility] Intermediate Care Unit [address] [place] [address] Hakan Perdomo DO Bukalo, Nermina, MD Santoyo-Pacheco, Omar D, MD Altered mental status, unspecified altered mental status type (Primary Dx); Gait instability; TIA (transient ischemic attack) Discharge Disposition: Home-Health Care [facility] 01/22/2025 12:30 PM EDT - 01/22/2025 4:23 PM EDT Emergency [facility] Emergency [address] [place] [address] Elen Kong MD Epiploic appendagitis (Primary Dx) Discharge Disposition: Home or Self Care from Last 3 Months Surgical History Surgery Date Site/Laterality Comments APPENDECTOMY BREAST LUMPECTOMY HERNIA REPAIR BREAST REDUCTION Medical History Medical History Date Comments Asthma Wfnul-3-pmwitlvuvjhlqcky deficiency Phenotype M2 Seizure disorder ([facility] V24, [facility] V28) Breast cancer ([facility] V24, [facility] V28) Migraine Hyperlipidemia Hypertension Family History Medical [...] 08/18/2019, 08/21/2013 Colorectal Cancer Screening: Colonoscopy 08/24/2022 Hepatitis C Screening 08/24/2022 Medicare Annual Wellness Visit 08/24/2022 Osteoporosis Screening (Bone Density Screening) 08/24/2022 Social Influencers of Health Screening 08/24/2022 Depression Screening 09/22/2024 COVID-19 Vaccine (9 - Pfizer risk season) 2025 07/09/2024, 08/04/2023, 01/25/2023, Additional history exists Influenza Vaccine (#1) 2025 , 08/04/2023, 06/22/2022, Additional history exists Falls Risk Assessment 03/09/2026 03/09/2025 Hypertension/CHF/CAD Annual BMP Blood Test 03/09/2026 03/09/2025, 03/08/2025, 01/22/2025, Additional history exists DTaP,Tdap,and Td Vaccines (2 - Td or Tdap) 10/15/2027 10/15/2017 Cholesterol Screening (Lipid Panel) 03/09/2030 03/09/2025 RSV Immunization Adult Patients Completed 10/02/2023 HIB Vaccines Aged Out No longer eligi [...] ref. provider found Sriram Akins MD Epileptologist [facility] us Freida JENNINGS NEUROLOGY ORDERABLES Edited Res ult - Final * Respiratory virus panel molecular study (03/09/2025 8:55 AM EDT) Pathologist [facility] Adenovirus Detection by PCR Not Detected Not Detected LAB MICROBIOLOGY METHOD 03/09/2025 10:06 AM EDT [facility] Influenza A PCR Not Detected Not Detected LAB MICROBIOLOGY METHOD 03/09/2025 10:06 AM EDT [facility] Influenza B PCR Not Detected Not Detected LAB MICROBIOLOGY METHOD 03/09/2025 10:06 AM EDT [facility] Coronavirus 229E Not Detected Not Detected LAB MICROBIOLOGY METHOD 03/09/2025 10:06 AM EDT [facility] Coronavirus HKU1 Not Detected Not Detected LAB MICROBIOLOGY METHOD 03/09/2025 10:06 AM EDT [facility] Coronavirus OC43 Not Detected Not Detected LAB MICROBIOLOGY METHOD 03/09/2025 10:06 AM EDT [facility] Coronavirus NL63 Not Detected Not Detected LAB MICROBIOLOGY METHOD 03/09/2025 10:06 AM EDT [facility] Parainfluenza Virus 1 Not Detected Not Detected LAB MICROBIOLOGY METHOD 03/09/2025 10:06 AM EDT [facility] Parainfluenza Virus 2 Not Detected Not Detected LAB MICROBIOLOGY METHOD 03/09/2025 10:06 AM EDT [facility] Parainfluenza Virus 3 Not Detected Not Detected LAB MICROBIOLOGY METHOD 03/09/2025 10:06 AM EDT [facility] Parainfluenza Virus 4 Not Detected Not Detected LAB MICROBIOLOGY METHOD 03/09/2025 10:06 AM EDT [facility] RSV PCR Not Detected Not Detected LAB MICROBIOLOGY METHOD 03/09/2025 10:06 AM EDT [facility] Human Metapneumovirus A and B Not Detected Not Detected LAB MICROBIOLOGY METHOD 03/09/2025 10:06 AM EDT [facility] Rhinovirus/Entero virus Not Detected Not Detected LAB MICROBIOLOGY METHOD 03/09/2025 10:06 AM EDT [facility] Bordetella pertussis Not Detected Not Detected LAB MICROBIOLOGY METHOD 03/09/2025 10:06 AM EDT [facility] Bordetella parapertussis Not Detected Not Detected LAB MICROBIOLOGY METHOD 03/09/2025 10:06 AM EDT [facility] Mycoplasma pneumo by PCR Not Detected Not Detected LAB MICROBIOLOGY METHOD 03/09/2025 10:06 AM EDT [facility] Chlamydia pneumoniae Not Detected Not Detected LAB MICROBIOLOGY METHOD 03/09/2025 10:06 AM EDT [facility] SARS COV-2 Not Detected Not Detected LAB MICROBIOLOGY METHOD 03/09/2025 10:06 AM T [facility] Swab Nasopharyngeal structure / Unknown Non-blood Collection / Unknown 03/09/2025 8:55 AM EDT 03/09/2025 9:08 AM EDT [facility] - 03/09/2025 10:06 AM EDT Testing was performed using the Manflu Respiratory Pathogen PCR Assay. All results must [...] MICROBIOLOGY - GENERA L ORDERABLES Final Result [facility] [address] [place] [address], * (ABNORMAL) Drug abuse screen 8a panel, urine (03/09/2025 6:28 AM EDT) Amphetamine Screen, Ur Negative Negative LAB CHEMISTRY METHOD 5 8:20 AM EDT [facility] Comment:Certain OTC medicati ons containing ephedrine, phenylephrine, pseudoephedrine and phenylpropanolamine can cause false positive results. Barbiturate Screen, Ur Negative Negative LAB CHEMISTRY METHOD 5 8:20 AM EDT [facility] Benzodiazepine Screen, Ur Negative Negative LAB CHEMISTRY METHOD 5 8:20 AM EDT [facility] Cocaine Screen, Ur Negative Negative LAB CHEMISTRY METHOD 5 8:20 AM T [facility] Opiate Screen, Ur Negative Negative LAB CHEMISTRY METHOD 5 8:20 AM [facility] Cannabinoid (THC) Screen, Ur Positive(A ) Negative LAB CHEMISTRY METHOD 5 8:20 AM [facility] Comment:Specimens from patie nts taking pantoprazole sodium (Protonix) have been shown to produce false positive results. Oxycodone Screen, Ur Negative Negative LAB CHEMISTRY METHOD 5 8:20 AM EDT [facility] Fentanyl, Ur Negative Negative LAB CHEMISTRY METHOD 5 8:20 AM [facility] Urine Urine specimen obtained by clean catch procedure / Unknown Non-blood Collection / Unknown 03/09/2025 6:28 AM EDT 03/09/2025 7:36 AM EDT Narrative [facility] - 03/09/2025 8:20 AM EDT Assay [...] ORDERABLES Final Resu lt Performing Organization Address [facility]/State/ZIP Co de Phone Number [facility] [address] [place] [address], [place] [phone] * (ABNORMAL) Lipid panel with reflex to direct LDL (03/09/2025 6:16 AM EDT) Cholesterol 283(H) 0 - 200 mg/dL LAB CHEMISTRY METHOD 03/09/2025 7:47 AM EDT [facility] Triglycerides 158(H) 0 - 150 mg/dL LAB CHEMISTRY METHOD 03/09/2025 7:47 AM [facility] HDL 53 >=40 mg/dL LAB CHEMISTRY METHOD 03/09/2025 7:47 AM T [facility] LDL Calculated 198(H) 0 - 100 mg/dL LAB CHEMISTRY METHOD 03/09/2025 7:47 AM [facility] VLDL Cholesterol Escobar 31.6 mg/dL LAB CHEMISTRY METHOD 03/09/2025 7:47 AM [facility] Non HDL Chol. (LDL+VLDL) 230(H) <145 mg/dL LAB CHEMISTRY METHOD 03/09/2025 7:47 AM T [facility] Chol/HDL Ratio 5.3(H) 0.0 - 4.4 LAB CHEMISTRY METHOD 03/09/2025 7:47 AM [facility] Blood Venous blood specimen / Unknown Venipuncture / Unknown 03/09/2025 6:16 AM EDT 03/09/2025 6:29 AM EDT Freida JENNINGS LAB BLOOD ORDERABLES Final Resu lt [facility] [address] [place] [address], * (ABNORMAL) Complete blood count (03/09/2025 6:16 AM EDT) [facility] Signature WBC 5.9 4.8 - 10.8 K/mcL LAB HEMETOLOGY METHOD 03/09/2025 6:49 AM EDT [facility] RBC 3.60(L) 3.80 - 4.80 M/mcL LAB HEMETOLOGY METHOD 03/09/2025 6:49 AM EDT [facility] Hemoglobin 10.6(L) 11.5 - 16.0 g/dL LAB HEMETOLOGY METHOD 03/09/2025 6:49 AM EDT [facility] Hematocrit 33.4(L) 35.0 - 47.0 % LAB HEMETOLOGY METHOD 03/09/2025 6:49 AM EDT [facility] MCV 94.1 79.0 - 98.0 FL LAB HEMETOLOGY METHOD 03/09/2025 6:49 AM EDT [facility] MCH 29.9 27.0 - 32.0 pcg LAB HEMETOLOGY METHOD 03/09/2025 6:49 AM EDT [facility] MCHC 31.7(L) 32.0 - 37.0 g/dL LAB HEMETOLOGY METHOD 03/09/2025 6:49 AM EDT [facility] RDW 13.1 11.0 - 15.0 % LAB HEMETOLOGY METHOD 03/09/2025 6:49 AM EDT [facility] Platelets 257 130 - 400 K/mcL LAB HEMETOLOGY METHOD 03/09/2025 6:49 AM EDT [facility] MPV 9.9 7.0 - 11.0 FL LAB HEMETOLOGY METHOD 03/09/2025 6:49 AM EDT [facility] NRBC 0.0 <1.0 % LAB HEMETOLOGY METHOD 03/09/2025 6:49 AM EDT [facility] NRBC Absolute 0.00 <0.10 K/mcL LAB HEMETOLOGY METHOD 03/09/2025 6:49 AM EDT [facility] Blood Venous blood specimen / Unknown Venipuncture / Unknown 03/09/2025 6:16 AM EDT 03/09/2025 6:29 AM EDT us Lala Aguilar MD LAB BLOOD ORDERABLES Final Res ult [facility] [address] [place] [address], [place] [phone] * (ABNORMAL) Hepatic function panel (03/09/2025 6:16 AM EDT) Total Protein 5.9(L) 6.0 - 8.0 g/dL LAB CHEMISTRY METHOD 03/09/2025 2:07 PM [facility] Albumin 3.2 3.2 - 5.0 g/dL LAB CHEMISTRY METHOD 03/09/2025 2:07 PM [facility] Total Bilirubin 0.3 0.0 - 1.4 mg/dL LAB CHEMISTRY METHOD 03/09/2025 2:07 PM T [facility] Bilirubin, Direct 0.1 0.0 - 0.3 mg/dL LAB CHEMISTRY METHOD 03/09/2025 2:07 PM T [facility] Bilirubin, Indirect 0.2 0.0 - 1.1 mg/dL LAB CHEMISTRY METHOD 03/09/2025 2:07 PM [facility] ALT (SGPT) 14 10 - 60 unit/L LAB CHEMISTRY METHOD 03/09/2025 2:07 PM [facility] AST (SGOT) 9(L) 10 - 42 unit/L LAB CHEMISTRY METHOD 03/09/2025 2:07 PM [facility] Alkaline Phosphatase 48 42 - 121 unit/L LAB CHEMISTRY METHOD 03/09/2025 2:07 PM [facility] Blood Venous blood specimen / Unknown Venipuncture / Unknown 03/09/2025 6:16 AM EDT 03/09/2025 6:29 AM EDT Valente JENNINGS LAB BLOOD ORDERABLES Aleta l Result [facility] [address] [place] [address], [place] [phone] * Basic metabolic panel (03/09/2025 6:16 AM EDT) Only the most recent of2 resultswithin the time period is included. Sodium 138 133 - 145 mmol/L LAB CHEMISTRY METHOD 03/09/2025 7:47 AM [facility] Potassium 4.0 3.5 - 5.5 mmol/L LAB CHEMISTRY METHOD 03/09/2025 7:47 AM [facility] Chloride 105 96 - 110 mmol/L LAB CHEMISTRY METHOD 03/09/2025 7:47 AM [facility] CO2 27 21 - 32 mmol/L LAB CHEMISTRY METHOD 03/09/2025 7:47 AM [facility] Anion Gap 6 3 - 11 LAB CHEMISTRY METHOD 03/09/2025 7:47 AM [facility] Glucose 97 70 - 100 mg/dL LAB CHEMISTRY METHOD 03/09/2025 7:47 AM [facility] BUN 11 5 - 25 mg/dL LAB CHEMISTRY METHOD 03/09/2025 7:47 AM [facility] Creatinine 0.66 0.50 - 1.10 mg/dL LAB CHEMISTRY METHOD 03/09/2025 7:47 AM EDT [facility] eGFR 96 >=60 mL/min/1. 73m2 LAB CHEMISTRY METHOD 03/09/2025 7:47 AM EDT [facility] Comment:Calculation based on the Chronic Kidney Disease Epidemiology Collaboration (CKD-EPI) equation refit without adjustment for race. BUN/Creatinine Ratio 16.7 LAB CHEMISTRY METHOD 03/09/2025 7:47 AM EDT [facility] Calcium 8.9 8.5 - 10.5 mg/dL LAB CHEMISTRY METHOD 03/09/2025 7:47 AM EDT [facility] Blood Venous blood specimen / Unknown Venipuncture / Unknown 03/09/2025 6:16 AM EDT 03/09/2025 6:29 AM EDT us Lala Aguilar MD LAB BLOOD ORDERABLES Final Res ult [facility] [address] [place] [address], [place] [phone] * MR Brain wo Contrast (03/08/2025 8:51 [...] LAB CHEMISTRY METHOD 03/08/2025 7:41 PM EDT [facility] Comment:Hemolysis present Blood Venous blood specimen / Unknown Venipuncture / Unknown 03/08/2025 6:42 PM EDT 03/08/2025 7:06 PM EDT Frieda JENNINGS LAB BLOOD ORDERABLES Final Resu lt Performing Organization Address [facility] Co de Phone Number [facility] [address] [place] [address], [place] [phone] * Valproic acid level, total (03/08/2025 6:42 PM EDT) Pathologist [facility] Valproic Acid, Total 52 50 - 100 mcg/mL LAB CHEMISTRY METHOD 03/08/2025 7:41 PM EDT [facility] Blood Venous blood specimen / Unknown Venipuncture / Unknown 03/08/2025 6:42 PM EDT 03/08/2025 7:06 PM EDT us Freida JENNINGS LAB BLOOD ORDERABLES Final Resu lt [facility] [address] [place] [address], [place] [phone] * (ABNORMAL) Urinalysis with reflex microscopic and culture (03/08/2025 3:24 PM EDT) Specific [place] Urine >1.045(H) 1.003 - 1.030 LAB URINALYSIS - AUTOMATED METHOD 03/08/2025 4:09 PM [facility] pH, Urine 6.0 5.0 - 8.0 pH LAB URINALYSIS - AUTOMATED METHOD 03/08/2025 4:09 PM [facility] Leukocytes, Urine Trace(A) Negative LAB URINALYSIS - AUTOMATED METHOD 03/08/2025 4:09 PM [facility] Nitrite, Urine Negative Negative LAB URINALYSIS - AUTOMATED METHOD 03/08/2025 4:09 PM [facility] Protein, Urine Negative <=Trace mg/dL LAB URINALYSIS - AUTOMATED METHOD 03/08/2025 4:09 PM [facility] Glucose, Urine Negative Negative mg/dL LAB URINALYSIS - AUTOMATED METHOD 03/08/2025 4:09 PM [facility] Ketones, Urine Trace(A) Negative mg/dL LAB URINALYSIS - AUTOMATED METHOD 03/08/2025 4:09 PM [facility] Urobilinogen , Urine 0.2 0.2 - 1.0 mg/dL LAB URINALYSIS - AUTOMATED METHOD 03/08/2025 4:09 PM [facility] Bilirubin, Urine Negative Negative LAB URINALYSIS - AUTOMATED METHOD 03/08/2025 4:09 PM [facility] Blood, Urine Negative Negative LAB URINALYSIS - AUTOMATED METHOD 03/08/2025 4:09 PM [facility] RBC, Urine 0.9 0 - 4 /HPF LAB URINALYSIS - AUTOMATED METHOD 03/08/2025 4:09 PM EDT [facility] WBC, Urine 4.7(H) 0 - 4 /HPF LAB URINALYSIS - AUTOMATED METHOD 03/08/2025 4:09 PM EDT [facility] Squamous Epithelial, Urine 20 0 - 60 /LPF LAB URINALYSIS - AUTOMATED METHOD 03/08/2025 4:09 PM EDT [facility] Bacteria, Urine Negative Negative /HPF LAB URINALYSIS - AUTOMATED METHOD 03/08/2025 4:09 PM EDT [facility] Hyaline Casts, Urine 0.4 0 - 3 /LPF LAB URINALYSIS - AUTOMATED METHOD 03/08/2025 4:09 PM EDT [facility] Urine Urine specimen obtained by clean catch procedure / Unknown Non-blood Collection / Unknown 03/08/2025 3:24 PM EDT 03/08/2025 3:51 PM EDT Lala Aguilar MD LAB URINE ORDERABLES Final Res ult Performing Organization Address City/[facility]/ZIP Co de Phone Number [facility] [address] [place] [address], [place] [phone] * Hernandez urine culture tube (03/08/2025 3:24 PM EDT) Extra Tube Hold for add-ons. 03/08/2025 5:01 PM EDT [facility] Comment:Auto resulted. Urine Urine specimen obtained by clean catch procedure / Unknown Non-blood Collection / Unknown 03/08/2025 3:24 PM EDT 03/08/2025 3:51 PM EDT Lala Aguilar MD LAB URINE ORDERABLES Final Res ult Performing Organization Address City/[facility]/ZIP Co de Phone Number [facility] [address] [place] [address], [place] [phone] * Culture urine (03/08/2025 3:24 PM EDT) Culture, Urine No growth 03/09/2025 7:30 AM EDT [facility] Urine Urine specimen obtained by clean catch procedure / Unknown Non-blood Collection / Unknown 03/08/2025 3:24 PM EDT 03/08/2025 4:09 PM EDT Lala Aguilar MD LAB MICROBIOLOGY - GENERAL ORD ERABLES Final Result [facility] [address] [place] [address], [place] [phone] * ECG 12 lead (03/08/2025 12:13 PM EDT) Ventricular Rate ECG 87 BPM GEMUSE Atrial Rate 87 BPM GEMUSE P-R Interval 162 ms GEMUSE QRS Duration 90 ms GEMUSE Q-T Interval 378 ms GEMUSE QTc 454 ms GEMUSE P Wave [place] 19 degrees GEMUSE R [place] -26 degrees GEMUSE T [place] 98 degrees GEMUSE ECG Interpretation Normal sinus [...] Signed Date: 03/08/2025 12:30 ET Workstation ID: [id number] Transcribed By: Self Edit Transcribed Date: 03/08/2025 [...] Omnipaque 370 injected. Scan was analyzed using [employer] based computer aided triage software. Total DLP: [...] is patent. Vertebrobasilar system is patent. Proximal seo consultant are patent. Major dural venous sinuses opacify normally with contrast. Extracranial structures are unremarkable. Degenerative changes in the bones. Procedure Note Afia Blank MD - 03/08/2025 PROCEDURE: CTA HEAD AND NECK INDICATION: Neuro deficit, acute, stroke suspected TECHNIQUE: CTA of the head and neck with intravenous contrast. Multiplanarreformats. The examination was performed utilizing dose reductiontechniques.3-D or MIP images were produced with postprocessing on anindependent computer workstation. 90cc Omnipaque 370 injected. Scan wasanalyzed using [facility] Contact AI based computer aided triage software. [...] is patent. Vertebrobasilar system is patent. Proximal seo consultant are patent. Major dural venous sinuses opacify normally with contrast. Extracranial structures are unremarkable. Degenerative changes in thebones. IMPRESSION: NO LARGE VESSEL OCCLUSION. -------- FINAL REPORT -------- Dictated By: Afia Blank Dictated Date: 03/08/2025 12:23 ET Assigned Physician: Afia Blank Reviewed and Electronically Signed By: Afia Blank Signed Date: 03/08/2025 12:30 ET Workstation ID: [id number] Transcribed By: Self Edit Transcribed Date: 03/08/2025 12:26 ET Hakan Perdomo DO IMG CT PROCEDURES Final Res ult * POCT Glucose, blood (03/08/2025 12:07 PM EDT) Glucose POCT 84 70 - 100 mg/dL 03/08/2025 12:08 PM EDT [facility] Blood Capillary blood specimen / Unknown 03/08/2025 12:07 PM EDT 03/08/2025 12:09 PM EDT Hakan Perdomo DO LAB POINT OF CARE T EST DOCKED DEVICE UNSOLICITED RESULTS Final Result [facility] [address] [place] [address], [place] [phone] * XR Chest 1 View (03/08/2025 12:05 PM EDT) Anatomical Region Laterality Modality Body Radiographic Nelia ging 03/08/2025 12:1 5 PM EDT Impressions 03/08/2025 12:15 PM EDT Impression: No active pulmonary process identified. Telerad DICK ([id number]) -------- FINAL REPORT -------- Dictated By: Lulu Patel Dictated Date: 03/08/2025 12:15 ET Assigned Physician: Lulu Patel Reviewed and Electronically Signed By: Lulu Patel Signed Date: 03/08/2025 12:15 ET Workstation ID: [id number] Transcribed By: Self Edit Transcribed Date: 03/08/2025 [...] No active pulmonary process identified. Telerad DICK ([id number]) -------- FINAL REPORT -------- Dictated By: Lulu Patel Dictated Date: 03/08/2025 12:15 ET Assigned Physician: Lulu Patel Reviewed and Electronically Signed By: Lulu Patel Signed Date: 03/08/2025 12:15 ET Workstation ID: [id number] Transcribed By: Self Edit Transcribed Date: 03/08/2025 12:15 ET Hakan Perdomo DO IMG XR PROCEDURES Final Res ult * Levetiracetam level (03/08/2025 11:53 AM EDT) Levetiracetam 54.4 3.0 - 60.0 ug/mL 03/10/2025 6:42 AM EDT [facility] Comment: Steady state trough serum or plasma levels following doses of 1000 to 3000 mg/Day: 3 to 37 ug/mL. The same dosage regimen will typically result in peak levels of 10 to 60 ug/mL, at approximately 1.5 hours post dose. If applicable, any drug confirmation testing reported here was developed and the performance characteristics determined by [facility]. This confirmation testing has not been cleared or approved by the FDA. The laboratory is regulated under CLIA as qualified to perform high-complexity testing. This test is used for patient testing purposes. It should not be regarded as investigational or for research. Test performed at [facility], [address] , [place] [address] Jennyfer Escobedo MD, PhD - [employer]is[employer] Proof Reader Blood Venous blood specimen / Unknown Venipuncture / Unknown 03/08/2025 11:53 AM EDT 03/08/2025 12:16 PM EDT Hakan Perdomo DO LAB BLOOD ORDERABLES Final Result [facility] [address] [place] [address] * Valproic acid level, total and free (03/08/2025 11:53 AM EDT) Valproic Acid, Free 9.2 4.8 - 17.3 mg/L 03/13/2025 4:12 AM EDT [facility] Comment: Note: Non-linear drug binding properties result in the fraction of Free Valproic Acid increasing as total drug increases. The free fraction may range from 5% to 25% for the total drug range of 30-160 mg/L. Valproic Acid 70.8 50.0 - 100.0 mg/L 03/13/2025 4:12 AM EDT [facility] Comment: Test Performed by Patrick Branchtilly, [facility], [address] [place] [address] Clement Segura M.D., Ph.D., Director of Laboratories , [facility] [id number] Blood Venous blood specimen / Unknown Venipuncture / Unknown 03/08/2025 11:53 AM EDT 03/08/2025 12:16 PM EDT us Hakan Perdomo DO LAB BLOOD ORDERABLES Final Result [facility] [address] [place] [address] * CT Head Stroke wo Contrast (03/08/2025 11:48 AM EDT) Anatomical Region Laterality Modality Head and Neck Computed Tomogra phy 03/08/2025 11:5 3 AM EDT Impressions 03/08/2025 11:56 AM EDT Impression: No acute hemorrhage or intracranial mass effect. No significant change. The findings were conveyed to the referring provider by secure text message ([employer]) at the time of interpretation on 03/08/25. Telerad PA ([id number]) A Critical Document Only message has been documented for the office of HAKAN PERDOMO in the [employer] system on 03/08/2025 11:55 AM, Message ID [id number]. -------- FINAL REPORT -------- Dictated By: Lulu Patel Dictated Date: 03/08/2025 11:53 ET Assigned Physician: Lulu Patel Reviewed and Electronically Signed By: Lulu Patel Signed Date: 03/08/2025 11:56 ET Workstation ID: [id number] Transcribed By: Self Edit Transcribed Date: 03/08/2025 [...] to the referring provider by secure textmessage ([employer]) at the time of interpretation on 03/08/25. Telerad DICK ([id number]) A Critical Document Only message has been documented for the office ofHAKAN PERDOMO in the [employer] system on03/08/2025 11:55 AM, Message ID [id number]. -------- FINAL REPORT -------- Dictated By: Lulu Patel Dictated Date: 03/08/2025 11:53 ET Assigned Physician: Lulu Patel Reviewed and Electronically Signed By: Lulu Patel Signed Date: 03/08/2025 11:56 ET Workstation ID: [id number] Transcribed By: Self Edit Transcribed Date: 03/08/2025 11:53 ET Hakan Perdomo DO IMG CT PROCEDURES Final Res ult * Thyroid stimulating hormone with reflex to free t4 and free t3 (03/08/2025 11:31 AM EDT) [facility] TSH 2.91 0.40 - 4.00 mcIU/mL LAB CHEMISTRY METHOD 03/08/2025 7:09 PM EDT [facility] Blood Venous blood specimen / Unknown Venipuncture / Unknown 03/08/2025 11:31 AM EDT 03/08/2025 11:42 AM EDT us Freida JENNINGS LAB BLOOD ORDERABLES Final Resu lt [facility] [address] [place] [address], * (ABNORMAL) CBC auto differential (03/08/2025 11:31 AM EDT) Only the most recent of2 resultswithin the time period is included. [facility] WBC 8.5 4.8 - 10.8 K/mcL LAB HEMETOLOGY METHOD 03/08/2025 11:53 AM EDT [facility] RBC 3.90 3.80 - 4.80 M/[facility] LAB HEMETOLOGY METHOD 03/08/2025 11:53 AM [facility] Hemoglobin 11.9 11.5 - 16.0 g/dL LAB HEMETOLOGY METHOD 03/08/2025 11:53 AM [facility] Hematocrit 37.2 35.0 - 47.0 % LAB HEMETOLOGY METHOD 03/08/2025 11:53 AM EDT [facility] MCV 94.9 79.0 - 98.0 FL LAB HEMETOLOGY METHOD 03/08[facility]25 11[facility] MCH 30.4 27.0 - 32.0 pcg LAB HEMETOLOGY METHOD 03/08/2025 11:53 AM [facility] MCHC 32.0 32.0 - 37.0 g/dL LAB HEMETOLOGY METHOD 03/08/2025 11:53 AM [facility] RDW 13.2 11.0 - 15.0 % LAB HEMETOLOGY METHOD 03/08/2025 11:53 AM [facility] Platelets 293 130 - 400 K/mcL LAB HEMETOLOGY METHOD 03/08/2025 11:53 AM [facility] MPV 9.9 7.0 - 11.0 FL LAB HEMETOLOGY METHOD 03/08/2025 11:53 AM [facility] NRBC 0.0 <1.0 % LAB HEMETOLOGY METHOD 03/08/2025 11:53 AM [facility] NRBC Absolute 0.00 <0.10 K/mcL LAB HEMETOLOGY METHOD 03/08/2025 11:53 AM [facility] Neutrophils Relative 70.1 % LAB HEMETOLOGY METHOD 03/08/2025 11:53 AM [facility] Lymphocytes Relative 20.3 % LAB HEMETOLOGY METHOD 03/08/2025 11:53 AM [facility] Monocytes Relative 6.8 % LAB HEMETOLOGY METHOD 03/08/2025 11:53 AM [facility] Eosinophils Relative 1.2 % LAB HEMETOLOGY METHOD 03/08/2025 11:53 AM [facility] Basophils Relative 0.5 % LAB HEMETOLOGY METHOD 03/08/2025 11:53 AM [facility] Immature Granulocytes Relative 1.1 % LAB HEMETOLOGY METHOD 03/08/2025 11:53 AM [facility] Neutrophils Absolute 5.95 1.50 - 7.00 K/mcL LAB HEMETOLOGY METHOD 03/08/2025 11:53 AM [facility] Lymphocytes Absolute 1.72 1.00 - 5.00 K/mcL LAB HEMETOLOGY METHOD 03/08/2025 11:53 AM EDT [facility] Monocytes Absolute 0.58 0.20 - 1.00 K/[facility] LAB HEMETOLOGY METHOD 03/08/2025 11:53 AM EDT [facility] Eosinophils Absolute 0.10 0.00 - 0.50 K/[facility] LAB HEMETOLOGY METHOD 03/08/2025 11:53 AM EDT [facility] Basophils Absolute 0.04 0.00 - 0.20 K/[facility] LAB HEMETOLOGY METHOD 03/08/2025 11:53 AM EDT [facility] Immature Granulocytes Absolute 0.09(H) 0.00 - 0.03 K/[facility] LAB HEMETOLOGY METHOD 03/08/2025 11:53 AM EDT [facility] Blood Venous blood specimen / Unknown Venipuncture / Unknown 03/08/2025 11:31 AM EDT 03/08/2025 11:42 AM EDT us Hakan Perdomo DO LAB BLOOD ORDERABLES Final Result [facility] [address] [place] [address], [place] [phone] * Activated partial thromboplastin time (03/08/2025 11:31 AM EDT) aPTT 29.4 24.1 - 39.3 sec LAB COAGULATION METHOD 03/08/2025 11:58 AM EDT [facility] Blood Venous blood specimen / Unknown Venipuncture / Unknown 03/08/2025 11:31 AM EDT 03/08/2025 11:42 AM EDT us Hakan Perdomo DO LAB BLOOD ORDERABLES Final Result [facility] [address] [place] [address], [place] [phone] * Prothrombin time with INR (03/08/2025 11:31 AM EDT) Protime 11.8 10.6 - 13.9 sec LAB COAGULATION METHOD 03/08/2025 11:58 AM EDT [facility] INR 0.9 LAB COAGULATION METHOD 03/08/2025 11:58 AM EDT [facility] Blood Venous blood specimen / Unknown Venipuncture / Unknown 03/08/2025 11:31 AM EDT 03/08/2025 11:42 AM EDT Hakan Perdomo DO LAB BLOOD ORDERABLES Final Result Performing Organization Address [facility]/ZIP Co de Phone Number [facility] [address] [place] [address], * Ethanol (03/08/2025 11:31 AM EDT) [facility] Ethanol Level <3 0 - 10 mg/dL LAB CHEMISTRY METHOD 03/08/2025 6:39 PM EDT [facility] Blood Venous blood specimen / Unknown Venipuncture / Unknown 03/08/2025 11:31 AM EDT 03/08/2025 11:42 AM EDT Freida JENNINGS LAB BLOOD ORDERABLES Final Resu lt [facility] [address] [place] [address], [place] [phone] * (ABNORMAL) Phenytoin level, total (dilantin) (03/08/2025 11:31 AM EDT) [facility] Phenytoin Level 1.5(L) 10.0 - 20.0 mcg/mL LAB CHEMISTRY METHOD 03/08/2025 12:51 PM EDT [facility] Blood Venous blood specimen / Unknown Venipuncture / Unknown 03/08/2025 11:31 AM EDT 03/08/2025 11:42 AM EDT Hakan Phillip Perdomo DO LAB BLOOD ORDERABLES Final Result [facility] [address] [place] [address], [place] [phone] * CT Abdomen Pelvis w Contrast (01/22/2025 2:33 PM EDT) Anatomical Region Laterality Modality Body Computed Tomogra phy 01/22/2025 3:06 PM EDT Impressions 01/22/2025 3:13 PM EDT Left lower quadrant epiploic appendagitis. -------- FINAL REPORT -------- Dictated By: EDENILSON LIZ Dictated Date: 01/22/2025 15:06 ET Assigned Physician: EDENILSON LIZ Reviewed and Electronically Signed By: EDENILSON LIZ Signed Date: 01/22/2025 15:13 ET Workstation ID: [id number] Transcribed By: Self Edit Transcribed Date: 01/22/2025 [...] Signed Date: 01/22/2025 15:13 ET Workstation ID: [id number] Transcribed By: Self Edit Transcribed Date: 01/22/2025 15:06 ET us Elen Kogn MD IMG CT PROCEDURES Final Result * Lactate, with reflex (01/22/2025 1:12 PM EDT) [facility] LACTIC ACID 1.4 0.4 - 2.0 mmol/L LAB CHEMISTRY METHOD 01/22/2025 1:51 PM EDT [facility] Blood Venous blood specimen / Unknown Venipuncture / Unknown 01/22/2025 1:12 PM EDT 01/22/2025 1:19 PM EDT us Elen Kong MD LAB BLOOD ORDERABLES Final Resul t Performing Organization Address City/[facility]/ZIP Co de Phone Number [facility] [address] [place] [address], [place] [phone] * (ABNORMAL) Lipase (01/22/2025 11:45 AM EDT) [facility] Lipase 10(L) 13 - 75 unit/L LAB CHEMISTRY METHOD 01/22/2025 1:29 PM EDT [facility] Blood Venous blood specimen / Unknown Venipuncture / Unknown 01/22/2025 11:45 AM EDT 01/22/2025 12:58 PM EDT us Juan Jose Denney DO LAB BLOOD ORDERABLES Final Res ult [facility] [address] [place] [address], [place] [phone] * (ABNORMAL) Comprehensive metabolic panel (01/22/2025 11:45 AM EDT) [facility] Sodium 140 133 - 145 mmol/L LAB CHEMISTRY METHOD 01/22/2025 1:29 PM EDT [facility] Potassium 4.4 3.5 - 5.5 mmol/L LAB CHEMISTRY METHOD 01/22/2025 1:29 PM EDT [facility] Chloride 105 96 - 110 mmol/L LAB CHEMISTRY METHOD 01/22/2025 1:29 PM [facility] CO2 26 21 - 32 mmol/L LAB CHEMISTRY METHOD 01/22/2025 1:29 PM [facility] Anion Gap 9 3 - 11 LAB CHEMISTRY METHOD 01/22/2025 1:29 PM [facility] Glucose 131(H) 70 - 100 mg/dL LAB CHEMISTRY METHOD 01/22/2025 1:29 PM [facility] BUN 16 5 - 25 mg/dL LAB CHEMISTRY METHOD 01/22/2025 1:29 PM [facility] Creatinine 0.93 0.50 - 1.10 mg/dL LAB CHEMISTRY METHOD 01/22/2025 1:29 PM [facility] eGFR 68 >=60 mL/min/1. 73m2 LAB CHEMISTRY METHOD 01/22/2025 1:29 PM [facility] Comment:Calculation based on the Chronic Kidney Disease Epidemiology Collaboration (CKD-EPI) equation refit without adjustment for race. BUN/Creatinine Ratio 17.2 LAB CHEMISTRY METHOD 01/22/2025 1:29 PM [facility] Calcium 9.7 8.5 - 10.5 mg/dL LAB CHEMISTRY METHOD 01/22/2025 1:29 PM [facility] AST (SGOT) 15 10 - 42 unit/L LAB CHEMISTRY METHOD 01/22/2025 1:29 PM [facility] ALT (SGPT) 17 10 - 60 unit/L LAB CHEMISTRY METHOD 01/22/2025 1:29 PM [facility] Alkaline Phosphatase 79 42 - 121 unit/L LAB CHEMISTRY METHOD 01/22/2025 1:29 PM [facility] Total Protein 7.9 6.0 - 8.0 g/dL LAB CHEMISTRY METHOD 01/22/2025 1:29 PM EDT [facility] Albumin 3.9 3.2 - 5.0 g/dL LAB CHEMISTRY METHOD 01/22/2025 1:29 PM EDT [facility] Total Bilirubin 0.4 0.0 - 1.4 mg/dL LAB CHEMISTRY METHOD 01/22/2025 1:29 PM EDT [facility] Blood Venous blood specimen / Unknown Venipuncture / Unknown 01/22/2025 11:45 AM EDT 01/22/2025 12:58 PM EDT us Juan Jose Denney DO LAB BLOOD ORDERABLES Final Res ult [facility] [address] [place] [address], [place] [phone] from Last 3 Months Insurance MEDICARE [facility] Advance Directives * Full Code - Default [...] currently active code status orders. Care Teams Fountain Supervisor Relationship Specialty Start Date End Date Ramiro Borrero MD [address] [place] [phone] PCP - General Family Medicine 01/22/25
== END 2025-04-21 08:47 | disposition home or self-care (01) ==
LOC: HO.MRI 08:46
PROVIDERS: PCP Family Medicine; Visit Provider Nurse Practitioner Family
DX: R29.6 Repeated falls (principal); R56.9 Unspecified convulsions; R25.1 Tremor, unspecified; F03.90 Unspecified dementia, unspecified severity, without behavioral disturbance, psychotic disturbance, mood disturbance, and anxiety
CPT/HCPCS: 70553; A9585